=== PATIENT | female | born 1950 | race Caucasian/White ===

== ENCOUNTER 2019-04-19 12:22 | Outpatient (CLI) | payer MEDICARE, SELFPAY ==
--- NOTE | ~2019-04-19 | MMUS_ITS ---
EXAMINATION: MM screen LT diag RT w john paul, US breast RT complete HISTORY: Right palpable breast mass TECHNIQUE: ML, MLO and craniocaudal full field and spot compression 3-D tomosynthesis images of the r ight breast and MLO and cc 3-D Tomosynthesis images of the left breast were performed and synthetic 2 -D images were generated. CAD analysis was submitted and interpreted. High resolution complete right breast breast ultrasound was performed. COMPARISON: 07/09/2011 [facility], [place], [place]. BREAST PARENCHYMAL COMPOSITION: The breasts are heterogeneously dense, which may obscure small masses . FINDINGS: MAMMOGRAPHIC FINDINGS: There is architectural distortion and overlying retraction in the outer mid to upper right breast and up to 3.7 x 6.7 cm asymmetric mass density (or densities) in the upper mid and inner right breast. C omplete right breast ultrasound examination was performed. No reproducible mass or architectural distortion, malignant calcification, skin thickening or retract ion is evident on the left. ULTRASOUND: At 11:00-1:00 in the upper inner and upper outer right breast there is a huge bilobed solid mass roshan uring up to 3.6 x 6.5 cm or greater dimension, with some relatively hypoechoic/sonolucent central are as which may represent necrosis. There is internal vascularity on color flow imaging. There is roly ectural distortion, spiculation. At 1:00 3 cm from the nipple there is an irregular hypoechoic solid lesion measuring 12 x 14.5 x 6 mm dimension. There is an adjacent approximately 2.8 x 11.7 mm solid lesion with suggestion of a fatty hilus, possibly a lymph node. At 1:00 5 cm from the nipple there is a 10.5 x 13.9 x 9.5 mm hypoechoic solid mass. IMPRESSION: 1. Right breast masses highly suggestive of malignancy 2. Ultrasound-guided biopsy of right breast masses should be considered BI-RADS category 5, highly suggestive of malignancy. Appropriate action should be taken. Dr. Becerra telephoned the report on 04/20/2019 at 0830 hours to Nurse Graves's voicemail Reviewed, dictated and finalized at location A. CONSULTANT IMPRESSION: 1. Right breast masses highly suggestive of malignancy 2. Ultrasound-guided biopsy of right breast masses should be considered BI-RADS category 5, highly suggestive of malignancy. Appropriate action should be taken. Dr. Becerra telephoned the report on 04/20/2019 at 0830 hours to Nurse [facility]ly's [facility] IMPRESSION: 1. Right breast masses highly suggestive of malignancy 2. Ultrasound-guided biopsy of right breast masses should be considered BI-RADS category 5, highly suggestive of malignancy. Appropriate action should be taken. Dr. Becerra telephoned the report on 04/20/2019 at 0830 hours to Nurse [facility]
== END 2019-04-19 12:23 | disposition home or self-care (01) ==
PROVIDERS: PCP Family Medicine
DX: Z12.31 Encounter for screening mammogram for malignant neoplasm of breast (principal); N64.51 Induration of breast; R92.8 Other abnormal and inconclusive findings on diagnostic imaging of breast
CPT/HCPCS: 76641; 77063; 77065; 77067

== ENCOUNTER 2019-05-03 09:30 | Outpatient (CLI) | payer MEDICARE, SELFPAY ==
--- NOTE | ~2019-05-03 | MMUS_ITS ---
EXAMINATION: US GUIDED NEEDLE BIOPSY DATE: 05/03/2019 11:07 SOFTWARE PROGRAMMER INDICATION: Multiple right breast masses. TECHNIQUE AND FINDINGS: The risks and potential benefits of the procedure were discussed with the patient, and written inform ed consent was obtained. Timeout procedure was performed. After sterile preparation of the right tri st, 1% lidocaine was utilized for local anesthesia. Ultrasound-guided biopsy was performed at 2 locations, including a large lesion at 11-1:00 and a smal ler adjacent lesion at 1:00. A 14G spring-loaded biopsy gun needle was advanced to the edge each mass of interest from a lateral a pproach utilizing sonographic guidance. A total of three tissue core samples were obtained from each of the 2 lesions. An Inrad tissue marker clip was then placed at each of the biopsy sites. Hemostas is was achieved. A sterile bandage was applied. The patient tolerated procedure well and there was no evidence of immediate complication. The patien t was given verbal instructions prior to departing from the department. A two view mammogram was performed, documenting a biopsy marker within the medial aspect of the large bilobed mass at 11-1:00 and another biopsy marker within a smaller more posteriorly situated upper i nner quadrant left breast mass. The tissue samples were submitted to surgical pathology for histologic analysis. IMPRESSION: 1. Successful ultrasound guided biopsy of 2 right breast masses with biopsy marker placement. Please refer to pathology report for histologic analysis. Reviewed, dictated and finalized at Location A. Reviewed, dictated and finalized at location A. WARE PROGRAMMER IMPRESSION: 1. Successful ultrasound guided biopsy of 2 right breast masses with biopsy ma rker placement. Please refer to pathology report for histologic analysis. IMPRESSION: 1. Successful ultrasound guided biopsy of 2 right breast masses with biopsy ma rker placement. Please refer to pathology report for histologic analysis.
== END 2019-05-03 09:31 | disposition home or self-care (01) ==
LOC: ANHIMG 09:36
PROVIDERS: PCP Family Medicine; Visit Provider Nurse Practitioner Family
DX: R92.8 Other abnormal and inconclusive findings on diagnostic imaging of breast (principal); N63.10 Unspecified lump in the right breast, unspecified quadrant; C50.911 Malignant neoplasm of unspecified site of right female breast
CPT/HCPCS: 19083; 19084; 88305; 88342; A4648

== ENCOUNTER 2019-05-13 15:45 | Outpatient (CLI) | payer MEDICARE, SELFPAY ==
[2019-05-13 15:58] LABS: Basophils Absolute Auto 0.1 K/mm3 (0.0-0.1); Basophils Percent Auto 0.8 % (0.2-1.2); Eosinophils Absolute Auto 0.3 K/mm3 (0-0.3); Hematocrit 40.6 % (37.0-47.0); Hemoglobin 13.5 g/dL (12.0-15.0); Immature Granulocyte Absolute 0.02 K/mm3 (0.00-0.031); Immature Granulocyte Percent A 0.2 % (0-0.5); Lymphocytes Absolute Auto 1.97 K/mm3 (0.9-3.2); Lymphocytes Percent Auto 21.2 % (18.3-44.2); Mean Corpuscular HGB Conc 33.3 g/dl (32-36); Mean Corpuscular Hemoglobin 30.5 pg (26-34); Mean Corpuscular Volume 91.6 fl (80-100); Mean Platelet Volume 8.5 fl (7.4-10.4); Monocytes Absolute Auto 0.8 K/mm3 (0.1-0.6); Monocytes Percent Auto 8.2 % (2.6-8.5); Neutrophils Absolute Auto 6.2 K/mm3 (1.3-6.7); Neutrophils Percent Auto 66.6 % (45.5-73.1); Platelet Count Result 299 k/mm3 (150-375); Red Blood Count 4.43 M/mm3 (4.2-5.4); Red Cell Distribution Width 12.3 % (11.5-14.5); White Blood Count 9.3 K/mm3 (4.5-10.0)
[2019-05-13 16:49] LABS: Alanine Aminotransferase 26 U/L (4-35); Albumin Level 4.6 g/dL (3.5-5.1); Alkaline Phosphatase 94 U/L (38-126); Aspartate Amino Transferase 27 U/L (14-36); Bilirubin,Total 0.4 mg/dL (0.2-1.3); Blood Urea Nitrogen 18 mg/dL (7-17); Carbon Dioxide 26 mmol/L (22-30); Chloride 98 mmol/L (98-107); Estimated Glomerular Filt Rate > 60; Glucose 105 mg/dL (65-105); Potassium 4.5 mmol/L (3.4-5.0); Sodium 139 mmol/L (137-145)
== END 2019-05-13 15:46 | disposition home or self-care (01) ==
LOC: ANHLAB 15:46
PROVIDERS: PCP Family Medicine; Visit Provider Internal Medicine Hematology & Oncology
DX: C50.411 Malignant neoplasm of upper-outer quadrant of right female breast (principal); Z17.0 Estrogen receptor positive status [ER+]
CPT/HCPCS: 36415; 80053; 85025

== ENCOUNTER 2019-05-19 08:52 | Outpatient (CLI) | payer MEDICARE, SELFPAY ==
[2019-05-19 09:36] LABS: INR 0.9; Prothrombin Time 11.9 Seconds (11.1-14.7)
[2019-05-19 09:37] LABS: Partial Thromboplastin Time 26.6 SECONDS (22.3-36.8)
== END 2019-05-19 08:53 | disposition home or self-care (01) ==
LOC: ANHSURGERY 08:55
PROVIDERS: PCP Family Medicine; Visit Provider Surgery
DX: Z01.818 Encounter for other preprocedural examination (principal); C50.919 Malignant neoplasm of unspecified site of unspecified female breast
CPT/HCPCS: 36415; 85610; 85730

== ENCOUNTER 2019-05-24 00:22 | Day surgery (SDC) | payer MEDICARE, SELFPAY ==
[2019-05-18 14:55] VITALS: BMI 30.8
--- NOTE | ~2019-05-24 | XR_ITS ---
XR chest port-a-cath/central, XR fl guide central line place 05/24/2019 14:27 (accession [id number]), 05/24/2019 14:14 (accession [id number]) Indication: Portacatheter insertion Procedure: AP portable chest and 2 fluoroscopic images of the chest. 50 seconds of fluoroscopy. Comparison: No prior studies for comparison. Findings: Left IJ portacatheter tip in the SVC. Heart size normal. Small nodule right mid thorax roshan ures 8 mm. No focal pneumonia, edema, pleural effusion or pneumothorax. Impression: 1: 8 mm nodule right mid thorax. Follow-up CT chest recommended for further assessment. 2: Port catheter tip in the SVC. Reviewed, dictated and finalized at location B. RUNNER Impression: 1: 8 mm nodule right mid thorax. Follow-up CT chest recommended for further ass essment. 2: Port catheter tip in the SVC. Impression: 1: 8 mm nodule right mid thorax. Follow-up CT chest recommended for further ass essment. 2: Port catheter tip in the SVC.
--- NOTE | 2019-05-24 09:27 | WPDANESEPPF ---
Anes - Initial Pre Proc Eval Procedure: Operation Date: 05/24/19 14:00 Proposed Procedures p Insertion Seth Cath - Hamilton Lopez DO Date/Time: 05/24/19 09:27 Surgeon: Hamilton Lopez DO Pre Op Diagnosis: Right Breast Ca Patient Data Age: 68 Gender: F Height: 1.68 m Weight: 86.64 kg Allergies Allergy/AdvReac Type Severity Reaction Status Date / Time No Known Allergies Allergy Verified 05/18/19 14:54 Home Medications Medication Instructions Recorded Confirmed Type anastrozole 1 mg PO DAILY 05/18/19 05/18/19 History diphenhydramine-acetaminophen 1 tablet PO HS PRN 05/18/19 05/18/19 History [Tylenol PM Extra Strength] Patient hx anesthesia problems: none Family hx anesthesia problems: none [facility] Past Medical History Medical History (Updated 05/24/19 @ 09:28 by Casey Baker MD) Breast CA Obesity Social History Social History Gender identity (if verbalized by the patient): Female Anes - Eval Final PreProcedure Day of Procedure 05/24/19 09:27 Patient weight: obese Heart: regular rate and rhythm Lungs: clear to auscultation and normal air movement Airway: Mallampati scale class II Neurological: alert and oriented Last oral intake: >/= 8 hours ASA classification: III Emergent: no Anesthetic plan: proceed Anesthesia type and monitoring: general GIVS Informed Consent: The patient's anesthetic plan and its attendant risks and benefits were discussed with the patient/family/POA. Questions were solicited and answers provided to the satisfaction of the patient/family/POA.
[2019-05-24] MEDS: LACTATED RINGERS 1,000 ML 30 ML IV CONT (11:55)
[2019-05-24] MEDS: IBUPROFEN IV 800 MG/200 ML 800 MG/200 ML BAG 400 MG IVPB (12:13)
[2019-05-24 12:21] VITALS: BP 149/69; PULSE 91; RESP 18; TEMP 36.9; O2SAT 97
--- NOTE | 2019-05-24 13:26 | PM.IMHP ---
H&P: HPI History of Present Illness Chief complaint: Right Breast Ca Narrative: Cira Massey is a 68 year old female who presents with a recent finding of right breast cancer. She has a mass in her breast that was growing but she was caring for her who recently . She has had a biopsy which showed cancer. She is scheduled to begin chemo on Thursday. Review of Systems Review of Systems: All systems reviewed & are unremarkable except as noted in HPI and below PMFSH Past Medical History Medical History Breast CA Obesity Social History Social History Gender identity (if verbalized by the patient): Female Meds Home Medications and Allergies Home Medications Medication Instructions Recorded Confirmed Type anastrozole 1 mg PO DAILY 05/18/19 05/24/19 History diphenhydramine-acetaminophen 1 tablet PO HS PRN 05/18/19 05/24/19 History [Tylenol PM Extra Strength] Allergies Allergy/AdvReac Type Severity Reaction Status Date / Time No Known Allergies Allergy Verified 05/24/19 11:36 Vital Signs Vital Signs - 24 hr 05/24/19 12:21 Temperature 36.9 C Pulse Rate 91 Respiratory Rate 18 Blood Pressure 149/69 H Pulse Oximetry 97 Exam Const: General: alert; No acute distress Orientation/consciousness: patient oriented x3 Limitations: no limitations HENMT: Head: normocephalic and atraumatic Ears: hearing grossly normal bilaterally General nose exam: Normal external nose present and Normal nares present Mouth: Yes Normal oral and palatal mucosa present and Yes moist mucous membranes Eyes: General: appearance normal, both eyes and all related structures Conjunctivae: conjunctivae normal Sclera: sclerae normal Pupils: Equal, round and reactive pupils present EOM: EOMs intact bilaterally Neck: Neck: normal visual inspection, full ROM, no lymphadenopathy, supple and no JVD Lymphatic: no lymphadenopathy noted Chest: Chest palpation & inspection: normal inspection of the chest Resp: Effort & Inspection: normal respiratory effort and able to speak in complete sentences Auscultation: clear to auscultation bilaterally Percussion: percussion normal Cardio: Jugular venous distension: no JVD Rate: regular rate Rhythm: regular rhythm Heart sounds: S1 normal heart sound present and S2 normal heart sound present Peripheral pulses: Peripheral pulses 2+ throughout GI: Inspection: normal to inspection GI Palp: No abdominal tenderness, Yes Soft to palpation, No Guarding due to palpation present (GI), No Hernia present and No Rebound tenderness present Percussion: Yes normal to percussion Auscultation: normal bowel sounds : General: Yes no CVA tenderness Back/Spine/Pelvis: Back: no CVA tenderness Skin: General skin exam: normal color and dry skin Neuro: General: patient oriented x3, gait normal, moves all extremities, no focal motor deficits and CN's II-XI intact bilaterally Cranial nerves: Yes Equal, round and reactive pupils present Speech: normal speech Extrem: General: normal to inspection and capillary refill normal Assessment and Plan Assessment and plan (1) Breast CA: Code(s): C50.919 - Malignant neoplasm of unspecified site of unspecified female breast Status: Acute Assessment and Plan: I have recommended Port-a-Cath placement. I have discussed the procedure, risks, benefits, and alternatives with the patient. All questions answered.
[2019-05-24] MEDS: ceFAZolin 2 GM/D5W 50 ML 2 GM/50 ML BAG IVPB (13:33)
[2019-05-24] MEDS: HEPARIN SODIUM, PORCINE 10,000 UNITS/10 ML VIAL 2000 UNITS IV PUSH (13:44)
[2019-05-24] MEDS: LIDO 1%/EPINEPHRINE 1:100,000 20 ML VIAL 10 ML INFILTRATE (13:47)
[2019-05-24] MEDS: HEPARIN SODIUM 5,000 UNITS/ML VIAL 5000 UNITS IRRIGATION (13:54)
[2019-05-24 14:17] VITALS: BP 110/73; PULSE 98; O2SAT 96
--- NOTE | 2019-05-24 14:24 | PM.PROC ---
Procedure Note - Detailed Date of procedure: 05/24/19 Pre-op diagnosis: Right Breast Ca Post-op diagnosis: same Procedure performed: Left internal jugular Port-A-Cath placement using ultrasound and fluoroscopic guidance Description of procedure: Procedure as well as risks, benefits, and alternatives were discussed with patient. Written consent was obtained and placed in chart prior to procedure. Patient was brought back to surgical suite. Was placed supine on operating table. Time-out was done confirm patient procedure. IV sedation was then administered by the Anesthesia Department. The chest and neck area was prepped and draped in sterile fashion using chlorhexidine prep. Patient was placed in Trendelenburg position. SonoSite ultrasound was used to identify the left internal jugular vein. It was visualized as a compressible vessel just lateral to the carotid artery. 1% lidocaine with epinephrine was infiltrated directly over the vessel under ultrasound guidance. An 18 gauge introducer needle was then advanced under ultrasound guidance directly into the left internal jugular vein. Dark nonpulsatile blood was aspirated. A 0.035 in guidewire was then advanced through the needle under fluoroscopic guidance. The guidewire was visualized advancing all the way down into the superior vena cava. 1% lidocaine with epinephrine was then infiltrated on the left anterior chest and along the tract up to the guidewire insertion site. A 3 cm incision was made with a 15 blade scalpel, and electrocautery was then used for dissection down through the subcutaneous tissue to the pectoral fascia. A pocket was created just inferior to the incision using blunt dissection. A small tad incision was then also made at the insertion site at the neck. The tunneler was then advanced from the chest incision up to the neck incision and the catheter tubing was brought up through this tract. The dilator and sheath were then advanced over the guidewire under fluoroscopic visualization. The dilator and guidewire were then removed leaving the sheath in place. The catheter tubing was then advanced through the sheath under fluoroscopic guidance. The sheath was unsnapped and carefully peeled away. The catheter tubing was released underneath the neck incision. Fluoroscopy was used to confirm proper placement of the catheter tubing and no kinks along its path. The catheter was then cut to proper length and secured to the port. The port was then accessed with a Garcia needle and aspirated and flushed with heparinized saline. The port function with ease. The port was then hep-locked with Hep-Lock solution. The port was then placed within the pocket that was created, and was secured to the fascia using 3 0 Prolene simple interrupted sutures. The patient was flattened out in bed. Guillermina's fascia was reapproximated using 3 0 Vicryl simple interrupted sutures. The skin of the incisions was then approximated using 4-0 Monocryl subcuticular suture. Exofin glue was then applied on top. The patient was then awakened from anesthesia and transferred to recovery. Implants: Smart Port CT port Anesthesia: MAC and local (1% lidocaine with epinephrine) Surgeon: Hamilton Lopez DO Estimated blood loss (mL): 5 Complications: No immediate complications Condition: stable Disposition: same day Findings: This is a 68 year woman presented with a recent finding of right breast cancer. She noticed a mass in her right breast that had gotten larger over the past 3-6 months. Biopsy confirmed breast cancer. She has been referred to Oncology for chemotherapy, and she has also been referred to a breast specialist in [place] for possible surgical resection. She is in need of port placement to initiate chemotherapy. Left internal jugular Port-A-Cath was placed using ultrasound and fluoroscopic guidance. Ultrasound was used to identify the left internal jugular vein as a compressible vessel just lateral to t
[2019-05-24 14:45] VITALS: BP 146/58; PULSE 86
[2019-05-24 15:15] VITALS: BP 106/83; PULSE 94
== END 2019-05-24 15:27 | disposition home or self-care (01) ==
PROVIDERS: PCP Family Medicine; Visit Provider Surgery
PROC: (CPT 36561; principal; 2019-05-24 14:00)
DX: C50.919 Malignant neoplasm of unspecified site of unspecified female breast (principal); E66.9 Obesity, unspecified; Z68.30 Body mass index [BMI] 30.0-30.9, adult
CPT/HCPCS: 36561; 77001; C1788; J0690; J1644; J1741; J2704; J3010; J7030; J7120

== ENCOUNTER 2019-05-24 07:23 | Outpatient (CLI) | payer MEDICARE, SELFPAY ==
--- NOTE | ~2019-05-24 | MR_ITS ---
MR breast BI wo/w con 05/26/2019 09:05 QUEEN'S COUNSEL INDICATION: Known right breast cancer TECHNIQUE: MRI of the breasts perform using standard protocol pre-and post IV contrast with the follo wing sequences: Axial T2 STIR, axial T1, axial vibrant T1 with fat suppression precontrast and multip hasic postcontrast. COMPARISON: Comparison to multiple prior studies sequentially, with oldest reviewed study dated 04/19. FINDINGS: On precontrast images there is a large complex irregular shaped mass involving multiple thanh drants. The mass extends just posterior to the nipple with heterogeneous rapid washout enhancement. T here are areas of dark internal septations, likely areas of necrosis. This mass measures 9.5 x 6.8 x 5.8 cm. There is mild background parenchymal enhancement. In the upper outer quadrant of the right br east at 11:00, posteriorly there is a mass measuring 11 x 10 x 8 mm with rapid washout enhancement, l ikely a lymph node with effacement of the internal fat, suspicious for metastases. There is an additi onal mass in the right axillary tail posteriorly measuring 8 x 7 x 7 mm with similar imaging appearan ce, suspicious for pathologic lymph node. LEFT BREAST: No signal abnormalities on precontrast sequences. There is mild background parenchymal enhancement. No enhancing lesions following contrast administration. No areas of enhancement meeti ng threshold criteria on CAD analysis. No evidence of signal abnormalities in the axillary or inter nal mammary node distributions.] IMPRESSION: 1: Right breast: Large lobulated irregular shaped mass involving multiple quadrants with rapid washo ut internal enhancement and likely areas of necrosis.. This corresponds to the known malignancy and m easures 9.5 x 6.8 x 5.8 cm. There are probable pathologic lymph nodes in the upper outer quadrant of the right breast and axillary tail, suspicious for metastases. BI-RADS Category 6, known malignancy. 2: Left breast: Negative. No evidence of malignancy. BI-RADS category 1. Recommend annual mammogr aphy follow-up. Follow-up MRI may be useful for supplementing mammographic evaluation as clinically indicated. Reviewed, dictated and finalized at location A. N'S COUNSEL IMPRESSION: 1: Right breast: Large lobulated irregular shaped mass involving multiple quad rants with rapid washout internal enhancement and likely areas of necrosis.. Th is corresponds to the known malignancy and measures 9.5 x 6.8 x 5.8 cm. There a re probable pathologic lymph nodes in the upper outer quadrant of the right marlo ast and axillary tail, suspicious for metastases. BI-RADS Category 6, known mal ignancy. 2: Left breast: Negative. No evidence of malignancy. BI-RADS category 1. Re commend annual mammography follow-up. Follow-up MRI may be useful for supplementing mammographic evaluation as clinic ally indicated.
[2019-05-24 08:13] LABS: Estimated Glomerular Filt Rate > 60
== END 2019-05-24 07:24 | disposition home or self-care (01) ==
PROVIDERS: PCP Family Medicine; Visit Provider Internal Medicine Hematology & Oncology
DX: C50.411 Malignant neoplasm of upper-outer quadrant of right female breast (principal); Z17.0 Estrogen receptor positive status [ER+]
CPT/HCPCS: 36415; 77049; A9577; C8908

== ENCOUNTER 2019-05-26 06:37 | Outpatient (CLI) | payer MEDICARE, SELFPAY ==
--- NOTE | 2019-05-26 | ECHO_ITS ---
Patient Info Name: Cira Massey Age: 68 years : 1950 Gender: Female Ht: 67 in Wt: 191 lbs BSA: 2.05 m2 HR: 82 bpm BP: 135 / 83 mmHg Exam Date: 05/26/2019 7:29 AM Exam Location: [facility] Patient Status: Outpatient Admit Date: 05/26/2019 Staff Ordering Physician: Yonatan Gomez MD Teasel Setter: Yazmin Richardson RDCS Attending Provider: Yonatan Gomez MD Referring Physician: Jason CALDWELL; Exam Type: CA echo doppler color flow Study Info Indications C50.411 - Malignant neoplasm of upper-outer quadrant of right female breast Summary 1. Left ventricular systolic function is normal, estimated at 60-65%. 2. There is mildly increased left ventricular wall thickness. 3. The left ventricular diastolic function is grade I diastolic dysfunction. 4. There is mild aortic valve sclerosis. 5. There is trace aortic valve regurgitation. 6. There is mild tricuspid valve regurgitation. 7. No pulmonary hypertension, estimated pulmonary arterial systolic pressure is 33 mmHg. 8. There is mild pulmonic regurgitation. Left Ventricle Left ventricular chamber dimension is normal. Left ventricular systolic function is normal, estimated at 60-65%. There is mildly increased left ventricular wall thickness. Left ventricular septal wall motion is normal. The left ventricular diastolic function is grade I diastolic dysfunction. Right Ventricle Right ventricular chamber dimension is normal. Right ventricular systolic function is normal. Left Atria Left atrial chamber dimension is normal. Right Atria Right atrial chamber dimension is normal. Atrial Septum Intact interatrial septum visualized by color flow imaging. Aortic Valve The aortic valve is trileaflet. There is mild aortic valve sclerosis. There is no aortic valve stenosis. There is trace aortic valve regurgitation. Pulmonic Valve The pulmonic valve is normal. There is no pulmonic valve stenosis. There is mild pulmonic regurgitation. Mitral Valve The mitral valve has normal leaflets. There is no mitral valve stenosis. There is no mitral valve regurgitation. Tricuspid Valve The tricuspid valve leaflets are normal. There is no significant tricuspid valve stenosis. There is mild tricuspid valve regurgitation. No pulmonary hypertension, estimated pulmonary arterial systolic pressure is 33 mmHg. Pericardium/Pleural The pericardium appears normal. There is no pericardial effusion. Inferior Vena Cava Normal inferior vena cava with >50% collapse upon inspiration consistent with Empty right atrial pressure, 5 mmHg. Aorta The aortic root size at the sinus of Valsalva is normal. The prox ascending aorta size is normal. Left Ventricular Outflow Tract Name Value Normal LVOT 2D LVOT Diameter 1.9 cm LVOT Doppler LVOT Peak Gradient 4 mmHg LVOT Mean Gradient 2 mmHg LVOT VTI 19 cm LVOT VTI/AV VTI Ratio 1.0 LVOT Stroke Volume 53 ml LVOT CO 4.5 l/min
--- NOTE | ~2019-05-26 | CT_ITS ---
EXAMINATION: CT chest abdomen pelvis w con DATE: 05/26/2019 14:34 INDICATION: Malignant neoplasm of overlapping sites of right breast. TECHNIQUE: Computed tomography (CT) of the chest, abdomen, and pelvis was performed with 100 mL Omnip aque 350 intravenous contrast. Automated exposure control and iterative reconstruction technique were employed. The dose-length product was 1110.80 mGy-cm. COMPARISON: None FINDINGS: CHEST CT: The lungs demonstrate mild atelectasis. A calcified right lung nodule and calcified mediastinal lymph nodes are consistent with old granulomatous disease. There is a 3 mm nodule in right middle lobe, li alberto benign. No pleural effusion. The heart size is normal. No pericardial effusion. There is a left internal jugular port with tip at superior cavoatrial junction. There is a 6.4 x 3.6 cm mass in right breast. There are bridging endplate osteophytes at multiple levels in the spine, consistent with dif fuse idiopathic skeletal hyperostosis (DISH). ABDOMEN/PELVIS CT: The liver, gallbladder, spleen, pancreas, and adrenal glands are normal. There are cysts in the kidne ys measuring up to 1.6 cm on the right. There is diverticulosis of the colon without evidence of dive rticulitis. There are no dilated loops of bowel. The appendix is normal. There are no pathologically enlarged lymph nodes. There is no free intraperitoneal fluid. There is a 2.0 cm sclerotic lesion in l eft ilium. There is a 5 mm sclerotic lesion in left ilium. There is a 4 mm sclerotic lesion in the sa zeeshan. There is a 5 mm benign bone island in left ilium. There is severe lumbar spondylosis. IMPRESSION: 1. Right breast mass, consistent with primary malignancy. 2. Sclerotic lesions of bone, which may be benign bone islands or metastatic disease. Consider bone s can. Reviewed, dictated and finalized at location A. ITAL PHARMACY DIRECTOR IMPRESSION: 1. Right breast mass, consistent with primary malignancy. 2. Sclerotic lesions of bone, which may be benign bone islands or metastatic di sease. Consider bone scan.
== END 2019-05-26 06:38 | disposition home or self-care (01) ==
PROVIDERS: PCP Family Medicine; Visit Provider Internal Medicine Hematology & Oncology
DX: C50.411 Malignant neoplasm of upper-outer quadrant of right female breast (principal); Z17.0 Estrogen receptor positive status [ER+]; I51.7 Cardiomegaly; I08.2 Rheumatic disorders of both aortic and tricuspid valves; I37.1 Nonrheumatic pulmonary valve insufficiency; M89.9 Disorder of bone, unspecified
CPT/HCPCS: 71260; 74177; 93306; Q9967

== ENCOUNTER 2019-10-05 13:33 | Outpatient (CLI) | payer MEDICARE, SELFPAY ==
[2019-10-05 13:49] LABS: Basophils Absolute Auto 0.1 K/mm3 (0.0-0.1); Basophils Percent Auto 0.5 % (0.2-1.2); Eosinophils Absolute Auto 0.2 K/mm3 (0-0.3); Eosinophils Percent Auto 1.6 % (0-4.4); Hematocrit 30.9 % (37.0-47.0); Hemoglobin 9.7 g/dL (12.0-15.0); Immature Granulocyte Absolute 0.08 K/mm3 (0.00-0.031); Immature Granulocyte Percent A 0.6 % (0-0.5); Lymphocytes Absolute Auto 0.79 K/mm3 (0.9-3.2); Lymphocytes Percent Auto 6.2 % (18.3-44.2); Mean Corpuscular HGB Conc 31.4 g/dl (32-36); Mean Corpuscular Hemoglobin 30.4 pg (26-34); Mean Corpuscular Volume 96.9 fl (80-100); Mean Platelet Volume 8.2 fl (7.4-10.4); Monocytes Absolute Auto 1.1 K/mm3 (0.1-0.6); Monocytes Percent Auto 8.3 % (2.6-8.5); Neutrophils Absolute Auto 10.6 K/mm3 (1.3-6.7); Neutrophils Percent Auto 82.8 % (45.5-73.1); Platelet Count Result 363 k/mm3 (150-375); Red Blood Count 3.19 M/mm3 (4.2-5.4); Red Cell Distribution Width 15.4 % (11.5-14.5); White Blood Count 12.8 K/mm3 (4.5-10.0)
[2019-10-05 15:17] LABS: Alanine Aminotransferase 42 U/L (4-35); Alkaline Phosphatase 118 U/L (38-126); Aspartate Amino Transferase 40 U/L (14-36); Bilirubin,Total 0.4 mg/dL (0.2-1.3); Blood Urea Nitrogen 10 mg/dL (7-17); Calcium 9.6 mg/dL (8.4-10.2); Carbon Dioxide 25 mmol/L (22-30); Chloride 98 mmol/L (98-107); Estimated Glomerular Filt Rate > 60; Glucose 102 mg/dL (65-105); Potassium 4.3 mmol/L (3.4-5.0); Sodium 135 mmol/L (137-145)
== END 2019-10-05 13:34 | disposition home or self-care (01) ==
LOC: ANHLAB 13:35
PROVIDERS: PCP Family Medicine; Visit Provider Internal Medicine Hematology & Oncology
DX: C50.811 Malignant neoplasm of overlapping sites of right female breast (principal); Z17.0 Estrogen receptor positive status [ER+]
CPT/HCPCS: 36415; 80053; 85025

== ENCOUNTER 2020-05-21 08:21 | Outpatient (CLI) | payer MEDICARE, SELFPAY ==
--- NOTE | ~2020-05-21 | MM_ITS ---
EXAMINATION: MM screening alejandra LT w john paul HISTORY: Screening TECHNIQUE: Craniocaudal and mediolateral oblique 3-D tomosynthesis images were obtained and synthetic 2-D images were generated. CAD analysis was submitted and interpreted. COMPARISON: Comparison to multiple prior studies sequentially, with oldest reviewed study dated 07/08. BREAST PARENCHYMAL COMPOSITION: The breasts are heterogenously dense, which may obscure small masses. FINDINGS: There are benign-appearing left breast calcifications. There is no evidence of suspicious m ass, calcification, or architectural distortion to suggest malignancy in the left breast. There has b een no suspicious interval change. IMPRESSION: 1. No mammographic evidence of malignancy. 2. Recommend routine screening mammography in one year. BI-RADS CATEGORY 1 - NEGATIVE Reviewed, dictated and finalized at location A. COATER
== END 2020-05-21 08:22 | disposition home or self-care (01) ==
PROVIDERS: PCP Family Medicine; Visit Provider Internal Medicine Hematology & Oncology
DX: Z12.31 Encounter for screening mammogram for malignant neoplasm of breast (principal)
CPT/HCPCS: 77063; 77067

== ENCOUNTER → 2020-07-13 00:47 | Outpatient (CLI) | payer MEDICARE, SELFPAY ==
[2020-07-13 21:02] LABS: SARS-CoV-2 RNA PCR Negative
== END ==
PROVIDERS: PCP Family Medicine; Visit Provider Surgery
DX: Z01.812 Encounter for preprocedural laboratory examination (principal); Z20.822 Contact with and (suspected) exposure to COVID-19
CPT/HCPCS: C9803; U0003; U0005

== ENCOUNTER 2020-07-16 03:05 | Day surgery (SDC) | payer MEDICARE, SELFPAY ==
[2020-07-13 10:16] VITALS: BMI 28.1
[2020-07-16] VITALS (7 sets, daily range): BP systolic 136–152; BP diastolic 63–79; PULSE 93–119; RESP 16–18; TEMP 36.3; O2SAT 95–99
--- NOTE | 2020-07-16 11:02 | PM.HPGS ---
History of Present Illness History of Present Illness Consent: Risks, benefits, and alternatives of removal of a Port-A-Cath have been discussed and questions answered. Patient agrees to proceed with procedure. Chief complaint: malignant neoplasm of overlapping sites rt breast Narrative: Cira Massey is a 69 year old female who has had breast cancer. She had T3N1 M1 MX stage IIB disease and is status post right-sided mastectomy and sentinel lymph node biopsy in September of 2019. 1 of 3 lymph nodes had micro metastasis. Patient's Oncotype DX showed a recurrence score of 27. Since completing radiation and chemotherapy the patient has been on Arimidex. Patient now presents with no evidence of further disease and has been approved by Dr. Ella shore to have her Port-A-Cath removed. She has not has noticed any new masses along the chest wall or any lymphadenopathy. Weight and appetite have been stable. Review of Systems Constitutional: Constitutional: Reports no additional constitutional complaints, Reports fatigue and Denies malaise Eyes: Eyes: Denies change in vision and Denies loss of vision ENT: Reports Normal hearing present, Denies change in voice, Denies dizziness, Denies hoarseness and Denies sore throat Cardiovascular: Cardiovascular: Denies chest pain, Denies leg edema and Denies dyspnea Respiratory: Respiratory: Denies cough, Denies dyspnea and Denies wheezing Gastrointestinal: Gastrointestinal: Denies hematochezia, Denies change in bowel habits and Denies heartburn Genitourinary: Genitourinary: Denies urinary frequency and Denies urinary incontinence Neurologic: Reports Normal hearing present, Denies confusion, Denies dizziness, Denies loss of vision, Denies memory loss and Denies seizure-like activity Psychiatric: Psychiatric: Denies confusion, Denies depression and Denies memory loss Endocrine: Endocrine: Denies cold intolerance and Reports fatigue Hematologic/Lymphatic: Hematologic/Lymphatic: Denies easy bleeding and Denies easy bruising Allergic/Immunologic: Allergic/Immunologic: Denies wheezing PMFSH Past Medical History Medical History Breast CA Obesity Family History Family History Other No family history of cancer Social History Social History Smoking status: Never smoker Alcohol intake: current Drinks per week: 5 Substance use: never Substance use type: does not use Living arrangements: alone Gender identity (if verbalized by the patient): Female Spiritual care concerns: No Meds Home Medications and Allergies Home Medications Medication Instructions Recorded Confirmed Type ferrous sulfate 324 mg PO DAILY 07/11/19 07/16/20 History loratadine [Claritin] 10 mg PO DAILY 10/26/19 07/16/20 History dwnnczjffcpf-aoq-vath-FA-vit K 1 tablet PO DAILY 10/26/19 07/16/20 History [Adults Multivitamin] anastrozole 1 mg PO DAILY 01/13/20 07/16/20 History Allergies Allergy/AdvReac Type Severity Reaction Status Date / Time No Known Allergies Allergy Verified 07/16/20 10:29 Vital Signs Vital Signs - 24 hr 07/16/20 10:45 Temperature 36.3 C L Pulse Rate 119 H Respiratory Rate 18 Blood Pressure 146/78 H Pulse Oximetry 99 Exam Const: General: cooperative, healthy appearing, no acute distress, well developed and alert; No confusion Nutritional Appearance: well nourished Orientation/consciousness: patient oriented x3 and No confusion Limitations: no limitations HENMT: Head: normal to inspection, normocephalic and atraumatic Ears: hearing grossly normal bilaterally General nose exam: Normal external nose present Face and sinus: no edema Mouth: Yes Normal oral and palatal mucosa present and Yes lip normal Throat: posterior oropharynx normal Eyes: General: appearance normal, both eyes and all related
--- NOTE | 2020-07-16 11:23 | WPDHPUPDATE1 ---
History and Physical Update Update Date/Time: 07/16/20 11:23 History and Physical has been reviewed, including an updated exam of the patient. There are NO changes in the patient's condition. Risks, benefits, and alternatives have been discussed and questions answered. Patient agrees to proceed with procedure.
[2020-07-16] MEDS: LIDO 2%/EPINEPHRINE 1:100,000 20 ML VIAL INFILTRATE (11:49)
--- NOTE | 2020-07-16 12:20 | PM.PROC ---
Procedure Note - Detailed Date of procedure: 07/16/20 Pre-op diagnosis: malignant neoplasm of overlapping sites rt breast Indwelling Port-A-Cath Post-op diagnosis: same Procedure performed: Removal of Port-A-Cath Description of procedure: Prior to the procedure the patient was seen in the holding area and the area of proposed surgery was marked. All questions were answered and the patient wished to proceed with removal of the Port-A-Cath. The patient was brought to the operating room and placed supine. The entire left neck, chest, and shoulder were prepped with chlorhexidine. The area was draped off. Time-out was performed confirming patient and site of surgery. Following this a 15 blade knife was used to make incision directly on the scar from the previous port placement. This was done after infiltrating local anesthetic into the area of and inferior to the scar and into the area of the pocket containing the port to some degree using 2% xylocaine with epinephrine. Following this we carefully dissected down to the junction of the port and catheter. Bovie cautery with needle-tip was used to carefully incise the capsule around the port and free up the scar tissue around the junction of the port and catheter. Two Prolene sutures that were holding the port to the underlying fascia were carefully excised with a 15 blade knife and mosquito hemostats. Following this the port was brought up and out of the pocket. Then watching the patient's respirations I carefully removed the catheter in one smooth pull while applying pressure in the lower right neck area at the catheter exit site as the patient was breathing out. Pressure was held for 1 minute. I used Bovie cautery on some the subcutaneous tissues as we waited for good clotting. Again hemostasis was checked in the wound using Bovie cautery for superficial hemostasis in the subcutaneous tissues. Following this closure was obtained with 2 layers. I used buried subcutaneous sutures of 3-0 Vicryl in the subcutaneous layer followed by a running subcuticular closure of 4-0 Monocryl on the skin. Patient tolerated the procedure well. Estimated blood loss was 3 cc Sponge, needle, and instrument counts were correct at the end the procedure and patient was taken to the outpatient recovery area in good condition. Anesthesia: local ( 2% xylocaine with epinephrine) Surgeon: Xavi Rodriguez MD Intensive Care Unit Registered Nurse: none Estimated blood loss (mL): 3 Drains: No Packing: No Pathology: none sent Complications: No immediate complications Condition: stable Disposition: other ( outpatient recovery area) Findings: unremarkable port and catheter that were intact.
== END 2020-07-16 12:33 | disposition home or self-care (01) ==
PROVIDERS: PCP Family Medicine; Visit Provider Surgery
PROC: (CPT 36589; principal; 2020-07-16 11:30)
DX: Z45.2 Encounter for adjustment and management of vascular access device (principal); Z85.3 Personal history of malignant neoplasm of breast; Z85.89 Personal history of malignant neoplasm of other organs and systems; Z92.21 Personal history of antineoplastic chemotherapy; Z92.3 Personal history of irradiation; E66.9 Obesity, unspecified; Z68.28 Body mass index [BMI] 28.0-28.9, adult; Z79.811 Long term (current) use of aromatase inhibitors
CPT/HCPCS: 36590; C9803; U0003; U0005

== ENCOUNTER 2020-11-22 07:56 | Outpatient (CLI) | payer MEDICARE, SELFPAY ==
--- NOTE | ~2020-11-22 | DEXA_ITS ---
Bone Density Report Name: Cira Massey Age: 70 Sex: Female Ethnicity: White Date of : 1950 Indication: postmenopausal; cancer; hysterectomy; Referring Provider: Rai, Markie Yancey Study: Bone densitometry was performed. Exam Date: November 22, 2020 Accession number: [id number] Bone Density: Region BMD T-score Z-score Classification AP Spine (L1-L4) 1.336 2.6 4.6 Normal Femoral Neck (Left) 0.948 0.9 2.6 Normal Total Hip (Left) 0.931 -0.1 1.3 Normal Total Hip Bilateral Avg 0.920 -0.2 1.2 Normal Femoral Neck (Right) 0.817 -0.3 1.4 Normal Total Hip (Right) 0.908 -0.3 1.1 Normal World Health Organization criteria for BMD impression classify patients as: Normal (T-score at or above -1.0), Osteopenia (T-score between -1.0 and -2.5), or Osteoporosis (T-score at or below -2.5). 10-year Fracture Risk: FRAX not reported because: All T-scores for Spine Total, Hip Total, Femoral Neck at or above -1.0 Clinical Information Provided by Patient: Has used the following medications: Calcium Has the following medical conditions: Cancer, Hysterectomy Patient maximum height was 67 Menopause Age: 52 No regular weight bearing exercise Drinks caffeinated beverages Onset of menses at age 15 Number of children 0 Impression: The patient has normal bone mass. Discussion: BONE DENSITY IS ABOVE THE MINIMUM DESIRABLE LEVEL AT ALL SKELETAL SITES TESTED. This patient?s bone mineral density is above the minimum desirable level (T-score -1.0 or better) at all sites measured. The patient should follow a healthful lifestyle (good nutrition with adequate calcium and vitamin D, and appropriate weight-bearing exercise). Follow-Up: Consider repeating this study in 5 years or sooner if there is some new clinical indication. Reported by: SHAE on 11/22/2020 8:35:00 AM. Reviewed, dictated and finalized at location APratima MCKINLEY
== END 2020-11-22 07:57 | disposition home or self-care (01) ==
PROVIDERS: PCP Family Medicine; Visit Provider Family Medicine
DX: Z78.0 Asymptomatic menopausal state (principal)
CPT/HCPCS: 77080

== ENCOUNTER 2021-06-03 08:32 | Outpatient (CLI) | payer MEDICARE, SELFPAY ==
--- NOTE | ~2021-06-03 | MM_ITS ---
EXAMINATION: MM screening alejandra LT w john paul HISTORY: Screening left mammogram, history of right mastectomy TECHNIQUE: Craniocaudal and mediolateral oblique 3-D tomosynthesis images were obtained and synthetic 2-D images were generated. CAD analysis was submitted and interpreted. COMPARISON: 05/21/2020 BREAST PARENCHYMAL COMPOSITION: The breasts are heterogeneously dense, which may obscure small masses . FINDINGS: There is no evidence of suspicious mass, calcification, or architectural distortion to sugg est malignancy. There has been no suspicious interval change. IMPRESSION: 1. No mammographic evidence of malignancy. 2. Recommend routine screening mammography in one year. BI-RADS Category 1: Negative Reviewed, dictated and finalized at location A.
== END 2021-06-03 08:33 | disposition home or self-care (01) ==
LOC: ANHIMG 08:33
PROVIDERS: PCP Family Medicine; Visit Provider Internal Medicine Hematology & Oncology
DX: Z12.31 Encounter for screening mammogram for malignant neoplasm of breast (principal)
CPT/HCPCS: 77063; 77067

== ENCOUNTER 2021-11-04 08:45 | Outpatient (CLI) | payer MEDICARE, SELFPAY ==
[2021-11-04 09:04] LABS: Basophils Absolute Auto 0.1 K/mm3 (0.0-0.1); Basophils Percent Auto 0.8 % (0.2-1.2); Eosinophils Absolute Auto 0.3 K/mm3 (0-0.3); Eosinophils Percent Auto 4.8 % (0-4.4); Hematocrit 40.7 % (37.0-47.0); Hemoglobin 13.8 g/dL (12.0-15.0); Immature Granulocyte Absolute 0.03 K/mm3 (0.00-0.031); Immature Granulocyte Percent A 0.5 % (0-0.5); Lymphocytes Absolute Auto 1.49 K/mm3 (0.9-3.2); Lymphocytes Percent Auto 23.1 % (18.3-44.2); Mean Corpuscular HGB Conc 33.9 g/dl (32-36); Mean Corpuscular Hemoglobin 31.7 pg (26-34); Mean Corpuscular Volume 93.3 fl (80-100); Mean Platelet Volume 8.1 fl (7.4-10.4); Monocytes Absolute Auto 0.6 K/mm3 (0.1-0.6); Monocytes Percent Auto 9.8 % (2.6-8.5); Neutrophils Absolute Auto 3.9 K/mm3 (1.3-6.7); Platelet Count Result 248 k/mm3 (150-375); Red Blood Count 4.36 M/mm3 (4.2-5.4); Red Cell Distribution Width 12.1 % (11.5-14.5); White Blood Count 6.4 K/mm3 (4.5-10.0)
[2021-11-04 11:47] LABS: Alanine Aminotransferase 32 U/L (6-35); Albumin Level 4.5 g/dL (3.5-5.1); Alkaline Phosphatase 107 U/L (38-126); Anion Gap 9 mmol/L (8-16); Aspartate Amino Transferase 29 U/L (14-36); Bilirubin,Total 0.5 mg/dL (0.2-1.3); Blood Urea Nitrogen 10 mg/dL (7-17); Calcium 9.2 mg/dL (8.4-10.2); Carbon Dioxide 27 mmol/L (22-30); Chloride 100 mmol/L (98-107); Estimated Glomerular Filt Rate > 60; Glucose 112 mg/dL (65-110); Potassium 4.4 mmol/L (3.4-5.0); Sodium 136 mmol/L (137-145)
[2021-11-09 06:42] LABS: CA 15-3 16 U/mL (<32)
== END 2021-11-04 08:46 | disposition home or self-care (01) ==
LOC: ANHLAB 08:48
PROVIDERS: PCP Family Medicine; Visit Provider Internal Medicine Hematology & Oncology
DX: C50.811 Malignant neoplasm of overlapping sites of right female breast (principal); Z17.0 Estrogen receptor positive status [ER+]
CPT/HCPCS: 36415; 80053; 85025; 86300

== ENCOUNTER 2022-07-07 08:49 | Outpatient (CLI) | payer MEDICARE, SELFPAY ==
--- NOTE | ~2022-07-07 | MM_ITS ---
EXAMINATION: MM screening alejandra LT w john paul HISTORY: Cranial left mammogram, history of right mastectomy TECHNIQUE: Craniocaudal and mediolateral oblique 3-D tomosynthesis images were obtained and synthetic 2-D images were generated. CAD analysis was submitted and interpreted. COMPARISON: 06/03/2021, 05/21/2020, 04/19/2019 BREAST PARENCHYMAL COMPOSITION: The breast is heterogeneously dense, which may obscure small masses. FINDINGS: No suspicious mass, calcification, or architectural distortion are identified to suggest ma lignancy. There has been no suspicious interval change.. IMPRESSION: 1. No mammographic evidence of malignancy. 2. Recommend routine screening mammography in one year. BI-RADS Category 1: Negative Reviewed, dictated and finalized at location A.
== END 2022-07-07 08:50 | disposition home or self-care (01) ==
LOC: ANHIMG 08:55
PROVIDERS: PCP Family Medicine; Visit Provider Internal Medicine Hematology & Oncology
DX: Z12.31 Encounter for screening mammogram for malignant neoplasm of breast (principal)
CPT/HCPCS: 77063; 77067

== ENCOUNTER 2022-12-24 09:33 | Outpatient (CLI) | payer MEDICARE, SELFPAY ==
--- NOTE | ~2022-12-24 | DEXA_ITS ---
Bone Density Report Name: ELIZABETH ADAMS Age: 72 Sex: Female Ethnicity: White Date of : 1950 Indication: postmenopausal; screening for osteoporosis; cancer; Referring Provider: WILFREDO YODER Study: Bone densitometry was performed. Exam Date: December 24, 2022 Accession number: [id number] Bone Density: Region BMD T-score Z-score Classification AP Spine(L1-L4) 1.330 2.6 4.7 Normal Femoral Neck (Left) 0.945 0.9 2.7 Normal Total Hip (Left) 0.901 -0.3 1.2 Normal Femoral Neck (Right) 0.886 0.3 2.1 Normal Total Hip (Right) 0.928 -0.1 1.4 Normal Total Hip Mean 0.915 -0.2 1.3 Normal World Health Organization criteria for BMD impression classify patients as: Normal (T-score at or above -1.0), Osteopenia (T-score between -1.0 and -2.5), or Osteoporosis (T-score at or below -2.5). 10-year Fracture Risk: FRAX not reported because: All T-scores for Spine Total, Hip Total, Femoral Neck at or above -1.0 Previous Exams: Region Exam Age BMD T-score BMD Change BMD Change Date g/cm2 vs Baseline vs Previous AP Spine (L1-L4) 12/24/2022 72 1.330 2.6 -0.007 (-0.5%) -0.007 (-0.5%) 11/22/2020 70 1.336 2.6 Total Hip(Left) 12/24/2022 72 0.901 -0.3 -0.030 (-3.2%) -0.030 (-3.2%) 11/22/2020 70 0.931 -0.1 Total Hip(Right) 12/24/2022 72 0.928 -0.1 0.020 (2.2%) 0.020 (2.2%) 11/22/2020 70 0.908 -0.3 *Denotes significance at 95% confidence level, LSC for AP Spine = 0.022 g/cm2, LSC for Total Hip = 0.027 g/cm2 Clinical Information Provided by Patient: Has used the following medications: Vitamin D Has the following medical conditions: Cancer Patient maximum height was 67 Menopause Age: 52 No regular weight bearing exercise Does not regularly consume dairy products Drinks caffeinated beverages Onset of menses at age 15 Number of children 0 Impression: The patient has normal bone mass. The BMD for the Total Hip(Left) decreased, changing by -3.2% since the last DXA exam. Discussion: BONE DENSITY IS ABOVE THE MINIMUM DESIRABLE LEVEL AT ALL SKELETAL SITES TESTED. This patient?s bone mineral density is above the minimum desirable level (T-score -1.0 or better) at all sites measured. The patient should follow a healthful lifestyle (good nutrition with adequate calcium and vitamin D, and appropriate weight-bearing exercise). Follow-Up: Consider repeating this study in 3 to 4 years to reassess this patient's status, or sooner i
== END 2022-12-24 09:34 | disposition home or self-care (01) ==
LOC: ANHIMG 09:34
PROVIDERS: PCP Family Medicine; Visit Provider Internal Medicine Hematology & Oncology
DX: M85.89 Other specified disorders of bone density and structure, multiple sites (principal)
CPT/HCPCS: 77080

== ENCOUNTER 2023-04-24 08:28 | Outpatient (CLI) | payer MEDICARE, SELFPAY ==
[2023-04-24 08:42] LABS: Basophils Absolute Auto 0.1 K/mm3 (0.0-0.1); Eosinophils Absolute Auto 0.3 K/mm3 (0-0.3); Eosinophils Percent Auto 4.6 % (0-4.4); Hematocrit 41.1 % (37.0-47.0); Hemoglobin 13.8 g/dL (12.0-15.0); Immature Granulocyte Absolute 0.02 K/mm3 (0.00-0.031); Immature Granulocyte Percent A 0.3 % (0-0.5); Lymphocytes Absolute Auto 1.38 K/mm3 (0.9-3.2); Lymphocytes Percent Auto 18.8 % (18.3-44.2); Mean Corpuscular HGB Conc 33.6 g/dl (32-36); Mean Corpuscular Hemoglobin 31.8 pg (26-34); Mean Corpuscular Volume 94.7 fl (80-100); Mean Platelet Volume 8.1 fl (7.4-10.4); Monocytes Absolute Auto 0.6 K/mm3 (0.1-0.6); Monocytes Percent Auto 8.3 % (2.6-8.5); Neutrophils Absolute Auto 4.9 K/mm3 (1.3-6.7); Platelet Count Result 281 k/mm3 (150-375); Red Blood Count 4.34 M/mm3 (4.2-5.4); Red Cell Distribution Width 12.1 % (11.5-14.5); White Blood Count 7.3 K/mm3 (4.5-10.0)
[2023-04-24 10:07] LABS: Alanine Aminotransferase 32 U/L (6-35); Albumin Level 4.1 g/dL (3.5-5.1); Alkaline Phosphatase 112 U/L (38-126); Anion Gap 8 mmol/L (8-16); Aspartate Amino Transferase 29 U/L (14-36); Bilirubin,Total 0.4 mg/dL (0.2-1.3); Blood Urea Nitrogen 18 mg/dL (7-17); Calcium 9.7 mg/dL (8.4-10.2); Carbon Dioxide 29 mmol/L (22-30); Chloride 102 mmol/L (98-107); Estimated Glomerular Filt Rate > 60; Glucose 114 mg/dL (65-110); Potassium 4.1 mmol/L (3.4-5.0); Sodium 139 mmol/L (137-145)
[2023-04-27 13:52] LABS: CA 15-3 17 U/mL (<32)
== END 2023-04-24 08:29 | disposition home or self-care (01) ==
PROVIDERS: PCP Family Medicine; Visit Provider Internal Medicine Hematology & Oncology
DX: C50.811 Malignant neoplasm of overlapping sites of right female breast (principal); Z17.0 Estrogen receptor positive status [ER+]
CPT/HCPCS: 36415; 80053; 85025; 86300

== ENCOUNTER 2023-08-13 08:22 | Outpatient (CLI) | payer MEDICARE, SELFPAY ==
--- NOTE | ~2023-08-13 | MM_ITS ---
EXAMINATION: MM screening alejandra LT w john paul HISTORY: Screening TECHNIQUE: Craniocaudal and mediolateral oblique 3-D tomosynthesis images were obtained and synthetic 2-D images were generated. CAD analysis was submitted and interpreted. COMPARISON: Comparison to multiple prior studies sequentially, with oldest reviewed study dated 04/19. BREAST PARENCHYMAL COMPOSITION: Dense: The breasts are heterogeneously dense, which may obscure small masses FINDINGS: There is no evidence of suspicious mass, calcification, or architectural distortion to sugg est malignancy in either breast. There has been no suspicious interval change. IMPRESSION: 1. No mammographic evidence of malignancy. 2. Recommend routine screening mammography in one year. BI-RADS Category 1: Negative Reviewed, dictated and finalized at location A.
== END 2023-08-13 08:23 | disposition home or self-care (01) ==
PROVIDERS: PCP Family Medicine; Visit Provider Internal Medicine Hematology & Oncology
DX: Z12.31 Encounter for screening mammogram for malignant neoplasm of breast (principal)
CPT/HCPCS: 77063; 77067

== ENCOUNTER 2023-08-21 08:36 | Outpatient (CLI) | payer MEDICARE, SELFPAY ==
[2023-08-21 08:55] LABS: Basophils Absolute Auto 0.1 K/mm3 (0.0-0.1); Eosinophils Absolute Auto 0.3 K/mm3 (0-0.3); Eosinophils Percent Auto 3.8 % (0-4.4); Hematocrit 40.9 % (37.0-47.0); Hemoglobin 13.6 g/dL (12.0-15.0); Immature Granulocyte Absolute 0.03 K/mm3 (0.00-0.031); Immature Granulocyte Percent A 0.4 % (0-0.5); Lymphocytes Absolute Auto 1.37 K/mm3 (0.9-3.2); Lymphocytes Percent Auto 17.8 % (18.3-44.2); Mean Corpuscular HGB Conc 33.3 g/dl (32-36); Mean Corpuscular Volume 96.2 fl (80-100); Mean Platelet Volume 8.6 fl (7.4-10.4); Monocytes Absolute Auto 0.9 K/mm3 (0.1-0.6); Monocytes Percent Auto 11.8 % (2.6-8.5); Neutrophils Percent Auto 65.2 % (45.5-73.1); Platelet Count Result 275 k/mm3 (150-375); Red Blood Count 4.25 M/mm3 (4.2-5.4); Red Cell Distribution Width 12.7 % (11.5-14.5); White Blood Count 7.7 K/mm3 (4.5-10.0)
[2023-08-21 12:53] LABS: Alanine Aminotransferase 39 U/L (6-35); Albumin Level 4.3 g/dL (3.5-5.1); Alkaline Phosphatase 112 U/L (38-126); Anion Gap 8 mmol/L (4-12); Aspartate Amino Transferase 32 U/L (14-36); Bilirubin,Total 0.6 mg/dL (0.2-1.3); Blood Urea Nitrogen 17 mg/dL (7-17); Calcium 9.6 mg/dL (8.4-10.2); Carbon Dioxide 26 mmol/L (22-30); Chloride 102 mmol/L (98-107); Estimated Glomerular Filt Rate > 60; Glucose 103 mg/dL (65-110); Potassium 4.4 mmol/L (3.4-5.0); Sodium 136 mmol/L (137-145)
[2023-08-24 20:26] LABS: CA 15-3 15 U/mL (<32)
== END 2023-08-21 08:37 | disposition home or self-care (01) ==
LOC: ANHLAB 08:38
PROVIDERS: PCP Family Medicine; Visit Provider Internal Medicine Hematology & Oncology
DX: C50.811 Malignant neoplasm of overlapping sites of right female breast (principal); Z17.0 Estrogen receptor positive status [ER+]
CPT/HCPCS: 36415; 80053; 85025; 86300

== ENCOUNTER 2023-12-24 08:27 | Outpatient (CLI) | payer MEDICARE, SELFPAY ==
[2023-12-24 08:45] LABS: Basophils Absolute Auto 0.1 K/mm3 (0.0-0.1); Eosinophils Absolute Auto 0.3 K/mm3 (0-0.3); Eosinophils Percent Auto 4.2 % (0-4.4); Hemoglobin 13.6 g/dL (12.0-15.0); Immature Granulocyte Absolute 0.03 K/mm3 (0.00-0.031); Immature Granulocyte Percent A 0.4 % (0-0.5); Lymphocytes Absolute Auto 1.65 K/mm3 (0.9-3.2); Lymphocytes Percent Auto 20.5 % (18.3-44.2); Mean Corpuscular HGB Conc 33.2 g/dl (32-36); Mean Corpuscular Hemoglobin 31.6 pg (26-34); Mean Corpuscular Volume 95.1 fl (80-100); Mean Platelet Volume 8.3 fl (7.4-10.4); Monocytes Percent Auto 11.9 % (2.6-8.5); Platelet Count Result 263 k/mm3 (150-375); Red Blood Count 4.31 M/mm3 (4.2-5.4); Red Cell Distribution Width 12.5 % (11.5-14.5); White Blood Count 8.1 K/mm3 (4.5-10.0)
[2023-12-24 10:59] LABS: Alanine Aminotransferase 39 U/L (6-35); Albumin Level 4.4 g/dL (3.5-5.1); Alkaline Phosphatase 109 U/L (38-126); Anion Gap 8 mmol/L (4-12); Aspartate Amino Transferase 41 U/L (14-36); Bilirubin,Total 0.3 mg/dL (0.2-1.3); Blood Urea Nitrogen 14 mg/dL (7-17); Calcium 9.2 mg/dL (8.4-10.2); Carbon Dioxide 29 mmol/L (22-30); Chloride 100 mmol/L (98-107); Estimated Glomerular Filt Rate > 60; Glucose 92 mg/dL (65-110); Potassium 4.5 mmol/L (3.4-5.0); Sodium 137 mmol/L (137-145)
[2023-12-26 06:18] LABS: CA 15-3 17 U/mL (<32)
== END 2023-12-24 08:28 | disposition home or self-care (01) ==
LOC: ANHLAB 08:29
PROVIDERS: PCP Family Medicine; Visit Provider Internal Medicine Hematology & Oncology
DX: C50.811 Malignant neoplasm of overlapping sites of right female breast (principal); Z17.0 Estrogen receptor positive status [ER+]
CPT/HCPCS: 36415; 80053; 85025; 86300

== ENCOUNTER 2024-06-27 09:05 | Outpatient (CLI) | payer MEDICARE, SELFPAY ==
[2024-06-27 09:32] LABS: Basophils Absolute Auto 0.1 K/mm3 (0.0-0.1); Basophils Percent Auto 0.9 % (0.2-1.2); Eosinophils Absolute Auto 0.5 K/mm3 (0-0.3); Eosinophils Percent Auto 5.3 % (0-4.4); Hematocrit 41.7 % (37.0-47.0); Hemoglobin 13.8 g/dL (12.0-15.0); Immature Granulocyte Absolute 0.05 K/mm3 (0.00-0.031); Immature Granulocyte Percent A 0.6 % (0-0.5); Lymphocytes Absolute Auto 1.62 K/mm3 (0.9-3.2); Lymphocytes Percent Auto 18.7 % (18.3-44.2); Mean Corpuscular HGB Conc 33.1 g/dl (32-36); Mean Corpuscular Hemoglobin 31.4 pg (26-34); Mean Platelet Volume 8.3 fl (7.4-10.4); Monocytes Absolute Auto 0.8 K/mm3 (0.1-0.6); Monocytes Percent Auto 9.2 % (2.6-8.5); Neutrophils Absolute Auto 5.7 K/mm3 (1.3-6.7); Neutrophils Percent Auto 65.3 % (45.5-73.1); Platelet Count Result 267 k/mm3 (150-375); Red Blood Count 4.39 M/mm3 (4.2-5.4); Red Cell Distribution Width 12.6 % (11.5-14.5); White Blood Count 8.7 K/mm3 (4.5-10.0)
--- OUTSIDE RECORDS SUMMARY | 2024-06-27 09:43 | XMS_ITS | Clinical Summary ---
Author Organization [facility] [address] [facility] Address [address] [place] [address] Care Team Providers Care Merchandise Pickup/Receiving Associate Name Role Phone Markie Atwood MD Primary Care Provider [phone] Allergies No known active allergies Medications aspirin 81 mg enteric coated tablet Take 1 tablet (81 mg total) by mouth daily Active naproxen (ALEVE) 220 mg tablet Take by mouth 2 (two) times a day with meals Active ALPRAZolam (XANAX) 0.5 mg tabletIndicatio ns:Anxiety Take 1 tablet (0.5 mg total) by mouth 3 (three) times a day as needed for anxiety 30 tablet 0 Active Additional Information Patient not taking.Reported on 12/15/2023 anastrozole (ARIMIDEX) 1 mg tablet 1 Active multivitamin tablet Take 1 tablet by mouth daily Active loratadine (CLARITIN) 10 mg tablet Take 1 tablet (10 mg total) by mouth daily Active psyllium husk, with sugar, (METAMUCIL FREE ORAL) Take by mouth Active ergocalciferol, vitamin D2, (VITAMIN D2 ORAL) Take by mouth Active atorvastatin (LIPITOR) 20 mg tablet TAKE 1 TABLET(20 MG) BY MOUTH DAILY 90 tablet 1 4 Active Active Problems Problem Noted Date Diagnosed Date Malignant neoplasm of overla pping sites of right breast in female, estrogen receptor positive 12/15/2023 Encounter for screening colonoscopy 11/30/2020 Overview (11/30/2020): Added automatically from request for surgery [id number] Immunizations Immunization Administration Dates Next Due Influenza, Quadrivalent, Hig h Dose, Preservative Free, Intrr 12/02/2022 Influenza, Quadrivalent, Spl it, Intramuscular 01/21/2015 Influenza, Quadrivalent, Spl it, Preservative Free, Intramuscular 12/30/2016 Influenza, Trivalent, High D ose, Split, Preservative Free, Intramuscular 12/15/2023,02/11/2019,01/07/2018 Influenza, Unspecified 12/15/2023(Deferr ed: Patient Refused),12/02/2022(Deferred: Patient Refused),03/23/2022(Deferred: Patient Refused),03/23/2021(Deferred: Patient Refused),09/03/2020(Deferred: Patient Refused),03/23/2019(Deferred: Patient Refused) Pfizer SARS-CoV-2 Monovalent Vaccination (12+ Yrs) PURPLE 08/14/2020,07/24/2020 Pneumococcal Conjugate PCV 13 02/11/2019 Pneumococcal Conjugate, Unspecified 08/21(Deferred: Patient Refused),03/23/2019(Deferred: Patient Refused) Surgical History Surgery Date Site/Laterality Comments BREAST LUMPECTOMY Right BREAST BIOPSY 05/03/2019 Right COLONOSCOPY 05/21/2006 - 06/20/2006 MASTECTOMY Right Family History Medical History Relation Name Comments Diabetes Mother Heart disease Mother Relation Name Status Comments Father Mother Social History Tobacco Use Types Packs/Day Years Used Date Smoking Tobacco: Never Smokeless Tobacco: Never Tobacco Cessation:Counseling Given: Not Answered Alcohol Use Standard Drinks/Week Comments Yes 3 (1 standard drink = 0.6 oz pur e alcohol) PHQ-2 Answer Date Recorded PHQ-2 Total Score (If total score is 3 or more points, staff should administer the PHQ-9) 0 12/15/2023 Comments Unknown Sex and Gender Information Value Date Recorded Sex Assigned at Not on file Legal Sex Female 3:18 AM LEGUILLON DEBEADER Gender Identity Female 12/20/2020 2:50 PM CDT Sexual Orientation Not on file Obstetrics History Last Filed Vital Signs Vital Sign Reading Time Taken Comments Blood Pressure 132/82 12/15/2023 7:55 AM CDT Pulse 120 12/15/2023 7:55 AM CDT Temperature 36.8 C (98.2 F) 12/15/2023 7:55 AM CDT Respiratory Rate 18 04/15/2023 10:0 8 AM LEGUILLON DEBEADER Oxygen Saturation 98% 12/15/2023 7:55 AM CDT Inhaled Oxygen Concentration - - Weight 87.5 kg (192 lb 14.4 oz) 12/15/2023 7:55 AM CDT Height 170.2 cm (5' 7 ) 12/15/2023 7:55 AM CDT Body Mass Index 30.21 12/15/2023 7:55 AM CDT Plan of Treatment Health Maintenance Due Date Last Done Comments Hepatitis C Screening 1950 DTaP/Tdap/Td Vaccine (1 - Tdap) 10/17/1963 Hepatitis B Screening 1970 Zoster Vaccine (1 of 2) 10/17/1971 Pneumococcal vaccine 65+ (2 of 2 - PPSV23) 04/08/2019 02/11/2019 Covid-19 Vaccine (3 - Pfizer risk series) 09/11/2020 08/14/2020, 07/24/2020 Breast Cancer Screening-Mammogram 08/12/2024 08/13/2023, 08/13/2023, 07/07/2022, Additional history exists Depression Screening 12/14/2024 12/15/2023, 12/02/2022, 11/26/2021, Additional history exists Fall Risk Assessment 12/14/2024 12/15/2023, 12/02/2022, 11/26/2021, Additional history exists Well Visit 65+ 12/14/2024 12/15/2023, 11/21, 11/26/2021, Additional history exists Osteoporosis Screening-Bone Density Scan 12/24/2024 12/24/2022, 11/22/2020 Colon Cancer Screening-Colonoscopy 01/01/2031 01/01/2021, 06/19/2006, 06/19/2006, Additional history exists Colon Cancer Screening-CT Colonography Discontinued 01/01/2021, 06/19/2006, 06/19/2006, Additional history exists Colon Cancer Screening-DNA Stool Discontinued 01/01/2021, 06/19/2006, 06/19/2006, Additional history exists Colon Cancer Screening-FIT Discontinued 01/01, 06/19/2006, 06/19/2006, Additional history exists Colon Cancer Screening-Sigmoidoscopy Discontinued 01/01/2021, 06/19/2006, 06/19/2006, Additional history exists Influenza Vaccine Completed 12/15/2023, , 02/11/2019, Additional history exists Procedures Procedure Name Priority Date/Time Associated Diagnosis Comments SCREENING MAMMOGRAM Schedule Routine, Read Routine (OP Routine) 08/13/2023 DEXA AXIAL SKELETON BONE DENSITY 1 OR MORE SITES Schedule Routine, Read Routine (OP Routine) 12/24/2022 COLONOSCOPY 01/01/2021 8:27 AM CDT from Last 3 Months or Most Recently Relevant to Health Maintenance Results * Screening Mammogram (08/13/2023) Anatomical Region Laterality Modality Breast N/A Mammography Historical Provider MD URBINA MAMMO PROCEDURES Leslie l Result * Dexa Axial Skeleton Bone Density 1 or 2 Site (12/24/2022) Anatomical Region Laterality Modality Body N/A Radiographic Fany ging Historical Provider MD URBINA DXA PROCEDURES Final Result * COLONOSCOPY (01/01/2021 8:27 AM CDT) Anatomical Region Laterality Modality Other Narrative Procedure Note Joey Arshad MD - 01/01/2021 8:27 AM CDT [facility] Patient Name: Cira Massey Procedure Date: 01/01/2021 8:27 AM Date of : 1950 Admit Type: Outpatient Age: 70 Gender: Female Attending MD: Joey Arshad M.D. Note Status: Finalized Patient Profile: Refer to note in patient chart for documentation of history and physical. Procedure: Colonoscopy Indications: Screening for colorectal malignant neoplasm, Last colonoscopy: May 2006 Referring MD: Markie Atwood M.D. Providers: Joey Arshad M.D. Impression: - Hemorrhoids found on perianal exam. - Diverticulosis in the sigmoid colon. - The examination was otherwise normal. - No specimens collected. Recommendation: - Discharge patient to home. - Resume previous diet. - Continue present medications. - Repeat colonoscopy in 5 years for surveillance. - Return to primary care physician as previously scheduled. Medicines: Propofol per Anesthesia Complications: No immediate complications. Estimated Blood Loss: Estimated blood loss: none. Procedure: Pre-Anesthesia Assessment: - This assessment was completed [Time ofAssessment] prior to the administration of sedation. The benefits, risks and alternatives of theprocedure and sedation were discussed and informed consentwas obtained. All questions were answered. Please referto the signed informed consent document in the medical record. The bowel preparation used was Miralax and bisacodyl tablets via single dose instruction. The scope was passed under direct vision. TheColonoscope [id number] was introduced through the anus and advanced to the the cecum, identified by appendiceal orifice and ileocecal valve. The colonoscopy was performed with ease. Thecolonoscopy was performed without difficulty. The patient tolerated the procedure well. The quality of thebowel preparation was excellent. Findings: Hemorrhoids were found on perianal exam. Multiple small and large-mouthed diverticula were found in thesigmoid colon. The exam was otherwise without abnormality. Electronically signed by Joey Arshad M.D. Joey Arshad M.D. 01/01/2021 10:03:47 AM Number of Addenda: 0 Note Initiated On: 01/01/2021 8:27 AM Procedure Code(s): --- Professional --- G0121, Colorectal cancer screening; colonoscopy on individual not meeting criteria for high risk Diagnosis Code(s): --- Professional --- K57.30, Diverticulosis of large intestine without perforation orabscess without bleeding K64.9, Unspecified hemorrhoids Z12.11, Encounter for screening for malignant neoplasm of colon CPT copyright 2019 [employer]. All rights reserved. The codes documented in this report are preliminary and upon automobile and property underwriter reviewmay be revised to meet current compliance requirements. Recognized by the [employer] for promoting quality in endoscopy Joey Arshad MD ENDOSCOPY PROCEDURES Final Re sult from Last 3 Months or Most Recently Relevant to Health Maintenance Insurance [facility] MEDIC[facility] ADVANT[facility] Advance Directives For more information, please contact: [phone] * Full Code (Latest Code Status on File) Date Activated Date Inactivated Comments 01/01/2021 8:25 AM 01/01/2021 2:48 PM * Full Code Date Activated Date Inactivated Comments 01/01/2021 8:25 AM 01/01/2021 8:25 AM Care Teams Merchandise Pickup/Receiving Associate Relationship Specialty Start Date End Date Markie Atwood MD [address] [place] [address] PCP - General Family Medicine 05/18/19
--- OUTSIDE RECORDS SUMMARY | 2024-06-27 09:43 | XMS_ITS | Clinical Summary ---
Author Organization [facility]om[facility] Address [address] [place] [address] Care Team Providers Care Supervisor Tower Name Role Phone Markie Atwood MD Primary Care Provider [phone] Allergies No known active allergies Medications IRON ORAL Take by mouth. Active multivitamin (DAILY-KRISTINA) tablet Take 1 Tablet by mouth daily. Active loratadine (CLARITIN) 10 mg tablet Take 10 mg by mouth daily. Active anastrozole (ARIMIDEX) 1 mg tabletIndication s:Malignant neoplasm of overlapping sites of right breast in female, estrogen receptor positive (CMS/HCC) TAKE 1 TABLET(1 MG) BY MOUTH DAILY 90 Tablet 3 11/16/2023 Active atorvastatin (LIPITOR) 20 mg tablet Take 20 mg by mouth daily. 10/12/2023 Active Active Problems Patient Care Coordination No te Formatting of this note migh t be different from the original. Primary Care: Markie Atwood MD Referring Provider: Markie Atwood MD [address] [address] Other: Dr. Alysa Lau MD Problem Noted Date Diagnosed Date S/P right mastectomy 06/08/2020 Chemotherapy induced neutropenia 07/11/2019 Malignant neoplasm of overla pping sites of right breast in female, estrogen receptor positive 05/13/2019 Resolved Problems Problem Noted Date Diagnosed Date Resolved Date Seroma of breast 01/27/2020 06/08/2020 Family History Medical History Relation Name Comments Cancer Maternal Grandmother skin ca ncer on her nose Diabetes Mother Heart Disease Mother Breast Cancer Other great aunt 60's Diabetes Sister Relation Name Status Comments Brother 1 Alive Brother 2 Alive Father Maternal Grandmother Mother Other great aunt 60's Alive Sister Alive Social History Tobacco Use Types Packs/Day Years Used Date Smoking Tobacco: Never Smokeless Tobacco: Never Alcohol Use Standard Drinks/Week Comments Yes 0 (1 standard drink = 0.6 oz pur e alcohol) Comments No Sex and Gender Information Value Date Recorded Sex Assigned at Not on file Legal Sex Female 11:11 PM CDT Gender Identity Not on file Sexual Orientation Not on file Last Filed Vital Signs Vital Sign Reading Time Taken Comments Blood Pressure 174/87 01/08/2024 10:09 AM CDT nervous Pulse 109 01/08/2024 10:01 AM CDT Temperature 36.4 C (97.5 F) 01/08/2024 10:01 AM CDT Respiratory Rate 16 01/08/2024 10:0 1 AM CDT Oxygen Saturation 96% 01/08/2024 10: 01 AM CDT Inhaled Oxygen Concentration - - Weight 86.1 kg (189 lb 12.8 oz) 024 10:01 AM CDT Height 167.6 cm (5' 6 ) 11/18/2021 9:35 AM CDT Body Mass Index 30.63 11/18/2021 9:35 AM CDT Plan of Treatment Upcoming Encounters Date Type Department Care Team (Late st Contact Info) Description 07/08/2024 9:45 AM CDT Office Visit [facility] [address] [place] [address] [facility] [address] [place] [address] Yonatan Gomez MD [address] [place] [address] Health Maintenance Due Date Last Done Comments DTAP/TDAP/TD VACCINES (1 - Tdap) 10/17/1971 ZOSTER VACCINE (1 of 2) 10/17/1971 FIT-DNA Q 3 years 1997 FIT/FOBT Q 1 year 1997 Flex Sig/CT Colonography Q 5 years 1997 PNEUMOCOCCAL VACCINE 50+ YEA RS (2 of 2 - PPSV23) 04/08/2019 02/11/2019 [place] Preventative Visit/Annual Wellness Visit 03/23/2024 BREAST CANCER SCREENING 08/12/2024 08/13/19 24, 07/07/2022, 05/21/2020, Additional history exists RSV VACCINE (60+ or ) (1 - 1-dose 75+ series) 10/17/2027 COLORECTAL SCREENING 01/01/2031 01/01/2021, 01/02/20 Colorectal Cancer Screening 01/01/2031 OSTEOPOROSIS SCREENING Completed 12/24/2022 INFLUENZA VACCINE Completed 12/15/2023, , 02/11/2019, Additional history exists Medical Devices Implanted Type Area Javascript Application Developer Device Identifier Shelf Expiration Date Model / Serial / Lot Auto Claims Adjuster Clip Surgiclip Ii Kamran 9.75in [id number] - [id number] Implanted:Qty: 1 on 10/12/2019 by Alysa Lau MD at [facility] Clip Right: Axilla [employer] - COVIDIEN 05/20/2024 [id number] / / [id number] Hemostatic Surgicel 4x8in 1949 - [id number] Implanted:Qty: 2 on 10/12/2019 by Alysa Lau MD at [facility] [place] Hemostatic Right: Axilla [employer] 11/21/20231951 / / [id number] Procedures Procedure Name Priority Date/Time Associated Diagnosis Comments MAMMO SCREENING BILAT Routine 08/13/2023 2:33 PM CDT from Last 3 Months or Most Recently Relevant to Health Maintenance Results * MAMMO SCREENING BILAT (08/13/2023 2:33 PM CDT) Anatomical Region Laterality Modality Breast Bilateral Mammography Yonatan Gomez MD MAMMO ORDERABLES Final Result from Last 3 Months or Most Recently Relevant to Health Maintenance Insurance [facility] [id number] RX OPT[employer] RX Member Subscriber Plan / Payer (Ef fective 2019-Present) Name:Cira Massey Relation to Subscriber:Self Name:Cira Massey Payer ID:Not on file Group ID:[id number] Type:RX Medicare Part D Address: [place] Advance Directives For more information, please contact: [phone] * Full Code (Latest Code Status on File) Date Activated Date Inactivated Comments 10/12/2019 2:13 PM 10/13/2019 3:02 PM Care Teams Supervisor Tower Relationship Specialty Start Date End Date Markie Atwood MD PCP - General Family Practice 07/26/19
--- OUTSIDE RECORDS SUMMARY | 2024-06-27 09:43 | XMS_ITS | Referral Summary ---
Author Organization [facility] [address] [facility] Address [address] [place] [address] Care Team Providers Care Magnet Valve Assembler Name Role Phone Markie Atwood MD Primary Care Provider [phone] Allergies No known active allergies Medications aspirin [...] (11/30/2020): Added automatically from request for surgery [id number] Immunizations Immunization Administration Dates Next Due Influenza, [...] Conjugate, Unspecified 08/21(Deferred: Patient Refused),03/23/2019(Deferred: Patient Refused) Social History Tobacco Use Types Packs/Day Years [...] on file Legal Sex Female 3:18 AM ENVIRONMENTAL MARKETING REPRESENTATIVE Gender Identity Female 12/20/2020 2:50 PM CDT Sexual Orientation Not on file Last Filed Vital Signs Vital Sign Reading Time Taken Comments Blood Pressure 132/82 12/15/2023 7:55 AM CDT Pulse 120 12/15/2023 7:55 AM CDT Temperature 36.8 C (98.2 F) 12/15/2023 7:55 AM CDT Respiratory Rate 18 04/15/2023 10:0 8 AM ENVIRONMENTAL MARKETING REPRESENTATIVE Oxygen Saturation 98% 12/15/2023 7:55 AM CDT Inhaled Oxygen Concentration - - Weight 87.5 kg (192 lb 14.4 oz) 12/15/2023 7:55 AM CDT Height 170.2 cm (5' 7 ) 12/15/2023 7:55 AM CDT Body Mass Index 30.21 12/15/2023 7:55 AM CDT Plan of Treatment Not on file Procedures Procedure Name Priority Date/Time Associated Diagnosis [...] Arshad MD - 01/01/2021 8:27 AM CDT [facility] Patient Name: Cira Massey Procedure Date: [...] scope was passed under direct vision. TheColonoscope [id number] was introduced through the anus and advanced [...] malignant neoplasm of colon CPT copyright 2019 [employer]. All rights reserved. The codes documented in this report are preliminary and upon associate professor of kinesiology reviewmay be revised to meet current compliance requirements. Recognized by the [place] [employer] G[employer] for promoting quality in endoscopy Joey Arshad MD ENDOSCOPY PROCEDURES Final Re sult from Last 3 Months or Most Recently Relevant to Health Maintenance Insurance [facility]IC[facility] ADVANTAGE [facility] Address: [address] [address] [place] [address] [facility] MEDICARE ADVANTAGE Advance Directives For more information, please contact: [phone] * Full Code (Latest Code Status on File) Date Activated Date Inactivated Comments 01/01/2021 8:25 AM 01/01/2021 2:48 PM * Full Code Date Activated Date Inactivated Comments 01/01/2021 8:25 AM 01/01/2021 8:25 AM Care Teams Magnet Valve Assembler Relationship Specialty Start Date End Date Markie Atwood MD [address] [place] [address] PCP - General Family Medicine 05/18/19
--- OUTSIDE RECORDS SUMMARY | 2024-06-27 09:43 | XMS_ITS | Encounter Summary ---
Author Organization [facility] Address [address] [place] [address] Care Team Providers Care Marketing Education Teacher Name Role Phone Markie Atwood MD Primary Care Provider [phone] Encounter Details Date Type Department Care Team (Late Contact Info) Description 10/26/2019 Chart Note [facility] Radiation Therapy [address] [place] [address] [place] [address] [place] [address] Social History Tobacco Use Types Packs/Day Years Used Date Smoking Tobacco: Never Smokeless Tobacco: Never Alcohol Use Standard Drinks/Week Comments Yes 0 (1 standard drink = 0.6 oz pur e alcohol) Comments No Sex and Gender Information Value Date Recorded Sex Assigned at Not on file Legal Sex Female 11:11 PM CDT Gender Identity Not on file Sexual Orientation Not on file COVID-19 Exposure Response Date Recorded In the last month, have you been in contact with someone who was confirmed or suspected to have Coronavirus / COVID-19? No / Unsure 10/27/2019 10:22 AM CDT documented as of this encounter Plan of Treatment Upcoming Encounters Date Type Department Care Team (Late Contact Info) Description 07/08/2024 9:45 AM CDT Office Visit [facility] Oncology and Hematology - [place] [address] [facility] [address] [place] [address] Yonatan Gomez MD [address] [place] [address] documented as of this encounter Visit Diagnoses Not on filedocumented in this encounter Care Teams Marketing Education Teacher Relationship Specialty Start Date End Date Markie Atwood MD PCP - General Family Practice 07/26/19 documented as of this encounter
[2024-06-27 12:15] LABS: Alanine Aminotransferase 38 U/L (6-35); Albumin Level 4.3 g/dL (3.5-5.1); Alkaline Phosphatase 115 U/L (38-126); Anion Gap 11 mmol/L (4-12); Aspartate Amino Transferase 34 U/L (14-36); Bilirubin,Total 0.3 mg/dL (0.2-1.3); Blood Urea Nitrogen 18 mg/dL (7-17); Calcium 9.4 mg/dL (8.4-10.2); Carbon Dioxide 27 mmol/L (22-30); Chloride 102 mmol/L (98-107); Estimated Glomerular Filt Rate > 60; Glucose 112 mg/dL (65-110); Potassium 4.3 mmol/L (3.4-5.0); Sodium 140 mmol/L (137-145)
[2024-06-29 01:42] LABS: CA 15-3 14 U/mL (<32)
== END 2024-06-27 09:06 | disposition home or self-care (01) ==
LOC: ANHLAB 09:06
PROVIDERS: PCP Family Medicine; Visit Provider Internal Medicine Hematology & Oncology
DX: C50.811 Malignant neoplasm of overlapping sites of right female breast (principal); Z17.0 Estrogen receptor positive status [ER+]
CPT/HCPCS: 36415; 80053; 85025; 86300

== ENCOUNTER 2024-12-14 08:09 | Outpatient (CLI) | payer MEDICARE, SELFPAY ==
--- NOTE | ~2024-12-14 | MM_ITS ---
EXAMINATION: MM screening alejandra LT w john paul INDICATION: Asymptomatic, referred for screening mammogram. History of Right mastectomy 2019. COMPARISON: 08/13/2023 through 05/21/2020 TECHNIQUE: Digital Breast Tomosynthesis CC, MLO views were obtained of LEFT breast with computer-aided detection to assist in interpretation of the study. FINDINGS: The breasts are heterogeneously dense, which may obscure small masses. No focal dominant mass, architectural distortion, or suspicious microcalcifications are identified. There are no features to suggest malignancy. IMPRESSION: 1. No mammographic evidence of malignancy. 2. Recommend routine screening mammography in one year. BI-RADS Category 1: Negative Reviewed, dictated and finalized at location B.
--- OUTSIDE RECORDS SUMMARY | 2024-12-14 08:23 | XMS_ITS | Clinical Summary ---
Author Organization [facility] [place] [facility] [place] 163 [facility] Address [address] [place] [address] Care Team Providers Care Tube Rebuilder Name Role Phone Markie Atwood MD Primary Care Provider [phone] Allergies No known active allergies Medications aspirin [...] MG) BY MOUTH DAILY 90 tablet 1 5 Active Active Problems Problem Noted Date Diagnosed Date Malignant neoplasm of overla pping sites of right breast in female, estrogen receptor positive 12/15/2023 Encounter for screening colonoscopy 11/30/2020 Overview (11/30/2020): Added automatically from request for surgery [id number] Encounters Date Type Department Care Team Description 11/16/2024 Telephone [facility] Care Organization [address] [place] [id number] Lisa Samuel MA Chart Review (Med adherence ) from Last 3 Months Immunizations Immunization Administration Dates Next Due Influenza, [...] on file Legal Sex Female 3:18 AM DIRECTOR MEDICAL SCIENCE Gender Identity Female 12/20/2020 2:50 PM CDT Sexual Orientation Not on file Obstetrics History Last Filed Vital Signs Vital Sign Reading Time Taken Comments Blood Pressure 132/82 12/15/2023 7:55 AM CDT Pulse 120 12/15/2023 7:55 AM CDT Temperature 36.8 C (98.2 F) 12/15/2023 7:55 AM CDT Respiratory Rate 18 04/15/2023 10:0 8 AM DIRECTOR MEDICAL SCIENCE Oxygen Saturation 98% 12/15/2023 7:55 AM CDT Inhaled Oxygen Concentration - - Weight 87.5 kg (192 lb 14.4 oz) 12/15/2023 7:55 AM CDT Height 170.2 cm (5' 7) 12/15/2023 7:55 AM CDT Body Mass Index 30.21 12/15/2023 7:55 AM CDT Plan of Treatment Health Maintenance Due Date Last Done Comments Hepatitis C Screening 1950 DTaP/Tdap/Td Vaccine (1 - Tdap) 10/17/1963 Hepatitis B Screening 1970 Zoster Vaccine (1 of 2) 10/17/1971 Pneumococcal vaccine 65+ (2 of 2 - PPSV23, PCV20, or PCV21) 04/08/2019 02/11/2019 Covid-19 Vaccine (3 - Pfizer risk series) 09/11/2020 08/14/2020, 07/24/2020 Breast Cancer Screening-Mammogram 08/12/2024 08/13/2023, 08/13/2023, 07/07/2022, Additional history exists Influenza Vaccine (#1) 2024 , 12/02/2022, 02/11/2019, Additional history exists Depression Screening 12/14/2024 12/15/2023, [...] Discontinued 01/01/2021, 06/19/2006, 06/19/2006, Additional history exists Procedures Procedure Name Priority [...] Anatomical Region Laterality Modality Breast N/A Mammography us Historical Provider MD URBINA MAMMO PROCEDURES Leslie l Result * Dexa Axial Skeleton Bone Density 1 or 2 Site (12/24/2022) Anatomical Region Laterality Modality Body N/A Radiographic Fany ging us Historical Provider MD URBINA DXA PROCEDURES Final Result * COLONOSCOPY (01/01/2021 8:27 AM CDT) Anatomical Region Laterality Modality Other Narrative Procedure Note Joey Arshad MD - 01/01/2021 8:27 AM CDT [facility] Patient Name: Cira Massey Procedure [...] scope was passed under direct vision. TheColonoscope [id number] was introduced through the anus and advanced [...] malignant neoplasm of colon CPT copyright 2019 [employer]. All rights reserved. The codes documented in this report are preliminary and upon cv rn reviewmay be revised to meet current compliance requirements. Recognized by the [employer] for promoting quality in endoscopy Joey Arshad MD ENDOSCOPY PROCEDURES Final Re sult from Last 3 Months or Most Recently Relevant to Health Maintenance Insurance [facility] MEDICARE ADVANTAGE [facility] MEDIC[facility] ADVANTAGE Advance Directives For more information, please contact: [phone] * Full Code (Latest Code Status on File) Date Activated Date Inactivated Comments 01/01/2021 8:25 AM 01/01/2021 2:48 PM * Full Code Date Activated Date Inactivated Comments 01/01/2021 8:25 AM 01/01/2021 8:25 AM Care Teams Tube Rebuilder Relationship Specialty Start Date End Date Markie Atwood MD [address] [place] [address] PCP - General Family Medicine 05/18/19
--- OUTSIDE RECORDS SUMMARY | 2024-12-14 08:23 | XMS_ITS | Encounter Summary ---
Author Organization [facility] Address [address] [place] [address] Care Team Providers Care Aircraft Engine Installer Name Role Phone Markie Atwood MD Primary Care Provider [phone] Encounter Details Date Type Department Care Team (Late Contact Info) Description 10/26/2019 Chart Note [facility] Radiation Therapy [address] [place] [address] [place] [address] [place] [address] Social History Tobacco Use Types [...] Department Care Team (Late Contact Info) Description 01/12/2025 10:15 AM CDT Office Visit [facility] Oncology and Hematology - [place] [address] [facility] [facility] [address] [place] [address] Yonatan Gomez MD [address] [facility] [address] [place] [address] documented as of this encounter Visit Diagnoses Not on filedocumented in this encounter Care Teams Aircraft Engine Installer Relationship Specialty Start Date End Date Markie Atwood MD PCP - General Family Practice 07/26/19 documented as of this encounter
--- OUTSIDE RECORDS SUMMARY | 2024-12-14 08:23 | XMS_ITS | Clinical Summary ---
Author Organization [facility] Address [address] [address] Care Team Providers Care Outdoor Illuminating Engineer Name Role Phone Markie Atwood MD Primary Care Provider [phone] Allergies No known active allergies Medications IRON ORAL Take by mouth. Active multivitamin (DAILY-KRISTINA) tablet Take 1 Tablet by mouth daily. Active loratadine (CLARITIN) 10 mg tablet Take 10 mg by mouth daily. Active atorvastatin (LIPITOR) 20 mg tablet Take 20 mg by mouth daily. 4 Active anastrozole (ARIMIDEX) 1 mg tabletIndicatio ns:Malignant neoplasm of overlapping sites of right breast in female, estrogen receptor positive (CMS/HCC) TAKE 1 TABLET(1 MG) BY MOUTH DAILY 90 Tablet 3 5 Active anastrozole (ARIMIDEX) 1 mg tabletIndicatio ns:Malignant neoplasm of overlapping sites of right breast in female, estrogen receptor positive (CMS/HCC) TAKE 1 TABLET(1 MG) BY MOUTH DAILY 90 Tablet 3 4 12/13/19 25 Discontinued Active Problems Patient Care Coordination No te Formatting of this note migh t be different from the original. Primary Care: Markie Atwood MD Referring Provider: Markie Atwood MD [address] [place] [address] Other: Dr. Alysa Lau MD Problem Noted Date Diagnosed Date S/P right mastectomy 06/08/2020 Chemotherapy induced neutropenia 07/11/2019 Malignant neoplasm of overla pping sites of right breast in female, estrogen receptor positive 05/13/2019 Resolved Problems Problem Noted Date Diagnosed Date Resolved Date Seroma of breast 01/27/2020 06/08/2020 Encounters Date Type Department Care Team Description 12/12/2024 Refill [facility] Oncology and Hematology - [place] [address] [place] [address] Yonatan Gomez MD Malignant neoplasm of overlapping sites of right breast in female, estrogen receptor positive (CMS/HCC) from Last 3 Months Family History Medical History Relation Name Comments [...] Answered Alcohol Use Standard Drinks/Week Comments Yes 0 (1 standard drink = 0.6 oz pur e alcohol) Comments No Sex and Gender Information Value Date Recorded Sex Assigned at Not on file Legal Sex Female 11:11 PM CDT Gender Identity Not on file Sexual Orientation Not on file Last Filed Vital Signs Vital Sign Reading Time Taken Comments Blood Pressure 142/90 07/08/2024 9:23 AM CDT Pt verbally stated that she is nervous Pulse 131 07/08/2024 9:23 AM CDT Temperature 36 C (96.8 F) 07/08/2024 9:21 AM CDT Respiratory Rate 16 07/08/2024 9:21 AM CDT Oxygen Saturation 94% 07/08/2024 9:2 1 AM CDT Inhaled Oxygen Concentration - - Weight 88 kg (194 lb) 07/08/2024 9:21 AM CDT Height 167.6 cm (5' 6) 11/18/2021 9:35 AM CDT Body Mass Index 31.31 11/18/2021 9:35 AM CDT Plan of Treatment Upcoming Encounters Date Type Department Care Team (Late st Contact Info) Description 01/12/2025 10:15 AM CDT Office Visit [facility] Oncology and Hematology [place] [address] [place] [address] Yonatan Gomez MD [address] [facility] [address] [place] [address] Health Maintenance Due Date Last Done Comments DTAP/TDAP/TD VACCINES (1 - Tdap) 10/17/1971 ZOSTER VACCINE (1 of 2) 10/17/1971 FIT-DNA Q 3 years 1997 FIT/FOBT Q 1 year 1997 Flex Sig/CT Colonography Q 5 years 1997 PNEUMOCOCCAL VACCINE 50+ YEA RS (2 of 2 - PPSV23, PCV20, or PCV21) 04/08/2019 02/11/2019 BREAST CANCER SCREENING 08/12/2024 08/13/19 24, 07/07/2022, 05/21/2020, Additional history exists INFLUENZA VACCINE (#1) 2024 , 12/02/2022, 02/11/2019, Additional history exists RSV VACCINE (60+ or ) (1 - 1-dose 75+ series) 10/17/2027 OSTEOPOROSIS SCREENING 12/25/2027 12/24/2022 COLORECTAL SCREENING 01/01/2031 01/01/2021, 01/02/20 21 Colorectal Cancer Screening 01/01/2031 Medical Devices Implanted Type Area Diesel Fitter Mechanic Device Identifier Shelf Expiration Date Model / Serial / Lot Planning And Analysis Manager Clip Surgiclip Ii Kamran 9.75in [id number] - [id number] Implanted:Qty: 1 on 10/12/2019 by Alysa Lau MD at [facility] [place] Clip Right: Axilla [employer] - COVIDIEN 05/20/2024 [id number] / / [id number] Hemostatic Surgicel 4x8in 1949 - [id number] Implanted:Qty: 2 on 10/12/2019 by Alysa Lau MD at [facility] [place] Hemostatic Right: Axilla [employer] 11/21/20231951 / / [id number] Procedures Procedure Name Priority Date/Time Associated Diagnosis Comments MAMMO SCREENING BILAT Routine 08/13/2023 2:33 PM CDT from Last 3 Months or Most Recently Relevant to Health Maintenance Results * MAMMO SCREENING BILAT (08/13/2023 2:33 PM CDT) Anatomical Region Laterality Modality Breast Bilateral Mammography Yonatan Gomez MD MAMMO ORDERABLES Final Result from Last 3 Months or Most Recently Relevant to Health Maintenance Insurance RX OPTUM RX Member Subscriber Plan / Payer (Ef fective 2019-Present) Name:Cira Massey Ryan Relation to Subscriber:Self Name:Cira Massey Ryan Payer ID:Not on file Group ID:[id number] Type:RX Medicare Part D Address: [address] [facility] [address] Advance Directives For more information, please contact: [phone] * Full Code (Latest Code Status on File) Date Activated Date Inactivated Comments 10/12/2019 2:13 PM 10/13/2019 3:02 PM Care Teams Outdoor Illuminating Engineer Relationship Specialty Start Date End Date Markie Atwood MD PCP - General Family Practice 07/26/19
== END 2024-12-14 08:10 | disposition home or self-care (01) ==
LOC: ANHFOHIMG 08:12
PROVIDERS: PCP Family Medicine; Visit Provider Internal Medicine Hematology & Oncology
DX: Z12.31 Encounter for screening mammogram for malignant neoplasm of breast (principal)
CPT/HCPCS: 77063; 77067

== ENCOUNTER 2024-12-27 08:36 | Outpatient (CLI) | payer MEDICARE, SELFPAY ==
--- OUTSIDE RECORDS SUMMARY | 2019-05-10 09:20 | XMS_ITS | Continuity of Care Document ---
Author Organization [facility] Address [address] [place] [address] Phone Care Team Providers Care Lead Manufacturing Technician Name Role Phone Jenifer De Oliveira MD Unavailable Unavailable Allergies, Adverse Reactions, Alerts Substance Reaction Status Criticality No Known Drug Allergies Other Active No I nformation Medications Medication Instructions Dosage Effective Dates (start - stop) Status Comments betamethasone valerate 0.1 % Topical Cream apply by topical route 2 times every day a thin layer to the affected area(s) 0.00 - Active Advance Directives Directive Yes / No Effective Date File Name No Information Encounters Encounter Description Practice Location Reason(s) For Visit Diagnoses Date Provider Providers Copied on Encounter [facility], [address], [place], [place], [address] , tel: [phone] [facility] No Information 0 Yennifer Burgess. [address], [place], [place], [address], . tel:[phone] [facility], [address], [place], [place], [address] , tel: [phone] [facility] No Information 3 Yennifer Burgess. [address], [place], [place], [address], . tel:[phone] [facility], [address] [place] [address], [id number] , tel: [phone] [facility] No Information 2 Yennifer Burgess. [address], [place], [place], [address], . tel:[phone] [facility], [address], [place], [place], [address] , tel: [phone] [facility] Routine general medical examination at a health care facilityAcute maxillary sinusitisRash and other nonspecific skin eruptionRoutine general medical examination at a health care facility 3 1 Yennifer Burgess. [address], [place], [place], [address], [place]. tel:[phone] Referring Provider: Jenifer Ahn, [address], [place], [address] . tel:[phone] [facility], [address], [place], [place], [address] , tel: [phone] [facility] Screening for unspecified disorder of blood and blood-forming organsScreening for thyroid disorders 1 Yennifer Burgess. [address], [place], [address], [place]. tel:[phone] Referring Provider: Jenifer Ahn, [address], [place], [address] . tel:[phone] [facility], [address], [place], [place], [address] , tel: [phone] [facility] Contact dermatitis and other eczema, unspecified causeOtalgia, unspecifiedAllergi c rhinitis, cause unspecifiedImpacte d cerumen 1 Ariane Domínguez. [address], [place], [address]. tel:[phone] Referring Provider: Jenifer Ahn, [address], [place], [address] . tel:[phone] [facility], [address], [place], [place], [address] , tel: [phone] [facility] ACUTE BRONCHITIS 0 8 0 Yennifer Burgess. [address] [place], [place], [address], [place]. tel:[phone] [facility], [address], [place], [place], [address] , tel: [facility] No Information 9 No Information [facility], [address], [place], [place], [address] , tel:[phone] [facility] REFLUX ESOPHAGITIS 9 Cizek Jenifer. [address], [place], [place], [address], [place]. tel:[phone] [place] [address], [address], [place], [place], [address] , tel: [facility] OPEN WOUND OF FOREARMANIMAL BITE NEC 7 Cizek Jenifer. [address], [place], [place], [address], . tel:[phone] [place] [address] [address], [place], [place], [address] , tel: [phone] [facility] ROUTINE MEDICAL EXAMPURE HYPERCHOLESTEROLEM SCREEN-BLOOD DIS NOS 7 Cizek Jenifer. [address], [place], [place], [address], [place]. tel:[phone] [place] [address], [address], [place], [place], [address] , tel: [phone] [facility] ACUTE SINUSITIS NOS 7 Conversion Doctor. [address], [place], [address], [place]. [facility], [address], [place], [place], [address] , tel: [phone] [facility] SPONTANEOUS ECCHYMOSESALLERGIC RHINITIS NOS 4 Cizek Jenifer. [address], [place], [place], [address], [place]. tel:[phone] [facility], [address], [place], [place], [address] , tel: [phone] [facility] SCREEN MAL NEOP-RECTUM 200 4 Cizek Jenifer. [address], [place], [place], [address], [place]. tel:[phone] [facility], [address], [place], [place], [address] , [place] tel: [phone] [facility] MALAISE AND FATIGUE NEC 8-200 4 Cizek Jenifer. [address], [place], [place], [address], [place]. tel:[phone] [facility], [address], [place], [place], [address] , [place] tel: [phone] [facility] IMPACTED CERUMEN 3-200 4 Conversion Doctor. [facility] [place], [address], [place]. [facility], [address], [place], [place], [address] , [place] tel: [phone] [facility] MENOPAUSAL DISORDER NOS 6-200 2 Cizek Jenifer. [address], [place], [place], [address], [place]. tel:[phone] [facility], [address], [place], [place], [address] , [place] tel:[phone] [facility] VACCIN FOR INFLUENZA Nov-0 7-200 2 Cizek Jenifer. [address], [place], [place], [address], [place]. tel:[phone] [facility], [address], [place], [place], [address] , [place] tel: [phone] [facility] CERVICALGIAACUTE URI NOSTENSION HEADACHEAC SUPP OTITIS MEDIA NOS Nov-0 4-200 2 Conversion Doctor. [facility] [place], [address], [place]. [facility], [address], [place], [place], [address] , [place] tel: [phone] [facility] DERMATOPHYTOSIS OF NAIL Mar-0 4-200 2 Cizek Jenifer. [address], [place], [place], [address], [place]. tel:[phone] [facility], [address], [place], [place], [address] , [place] tel: [phone] [facility] GSTR/DDNTS NOS W/O HMRHGBACKACHE NOS 200 2 Manjeet Garcia. [address], [place], [place], [address]. tel:[phone] [facility], [address], [place], [place], [address] , tel: [phone] [facility] CHRONIC RHINITISOTHER SBORHEIC KERATOSIS 3200 0 Umuevgeny RothJenifer. [address], [place], [place], [address], [place]. tel:[phone] Family History Family Member Type Diagnosis Age At Onset No Information Immunizations Vaccine Date Status Comments 70601 - Influenza administered Source: So urce Unspecified Payers Payer name Insurance type Covered constitution party ID Authoriza tion(s) No Information Social History Type Description Quantity Date Captured Comments Alcohol Use Details Unknown Caffeine Use Details Unknown Tobacco Use Status No Information Smoking Status No Information Sex Female Chief Complaint And Reason For Visit No Information Reason For Referral Reason For Referral No Information History Of Present Illness Encounter Date Complaint History Of Prese nt Illness No Information Functional Status Date Functional Assessmen t No Information Instructions Date Instruction Additional Infor mation No Information Assessments Type Assessment Date No Information Patient Care Teams Name Effective Dates (start - stop) Status Members No Information
--- OUTSIDE RECORDS SUMMARY | 2024-12-27 08:47 | XMS_ITS | Encounter Summary ---
Author Organization [facility] Address [address] [place] [address] Care Team Providers Care Television Cable Installer Name Role Phone Markie Atwood MD Primary Care Provider [phone] Encounter Details Date Type Department Care Team (Late Contact Info) Description 10/26/2019 Chart Note [facility] Radiation Therapy [address] [place] [address] [place] [address] [place] [address] Social History Tobacco Use Types [...] Description 01/12/2025 10:15 AM CDT Office Visit [facility] Oncology and Hematology - [place] [address] [facility] [address] [address] [place] [address] Yonatan Gomez MD [address] [facility] [address] [place] [address] documented as of this encounter Visit Diagnoses Not on filedocumented in this encounter Care Teams Television Cable Installer Relationship Specialty Start Date End Date Markie Atwood MD PCP - General Family Practice 07/26/19 documented as of this encounter
--- OUTSIDE RECORDS SUMMARY | 2024-12-27 08:47 | XMS_ITS | Clinical Summary ---
Author Organization [facility] Address [address] [address] Care Team Providers Care Weed Cooking Operator Name Role Phone Markie Atwood MD Primary Care Provider [phone] Allergies No known active allergies Medications IRON [...] Atwood MD [address] [place] [address] Other: Dr. Alysa Lau MD Problem Noted Date Diagnosed Date S/P right mastectomy 06/08/2020 Chemotherapy induced neutropenia 07/11/2019 Malignant neoplasm of overla pping sites of right breast in female, estrogen receptor positive 05/13/2019 Resolved Problems Problem Noted Date Diagnosed Date Resolved Date Seroma of breast 01/27/2020 06/08/2020 Encounters Date Type Department Care Team Description 12/16/2024 Orders Only [facility] Oncology and Hematology - [place] [address] [place] [address] Yonatan Gomez MD 12/12/2024 Refill [facility] Oncology and Hematology - [place] [address] [place] [address] Yonatan Gomez MD Malignant neoplasm of overlapping [...] Description 01/12/2025 10:15 AM CDT Office Visit [facility] Oncology and Hematology - [place] [address] [place] [address] Yonatan Gomez MD [address] [facility] [address] [place] [address] Health Maintenance Due Date Last Done Comments DTAP/TDAP/TD VACCINES (1 - Tdap) 10/17/1971 ZOSTER VACCINE (1 of 2) 10/17/1971 FIT-DNA Q 3 years 1997 FIT/FOBT Q 1 year 1997 Flex Sig/CT Colonography Q 5 years 1997 PNEUMOCOCCAL VACCINE 50+ YEA RS (2 of 2 - PPSV23, PCV20, or PCV21) 04/08/2019 02/11/2019 [place] Preventative Visit/Annual Wellness Visit 03/23/2024 INFLUENZA VACCINE (#1) 2024 , 12/02/2022, 02/11/2019, Additional history exists BREAST CANCER SCREENING 12/14/2025 12/15/19, 08/13/2023, 07/07/2022, Additional history exists RSV VACCINE (60+ or ) (1 - 1-dose 75+ series) 10/17/2027 OSTEOPOROSIS SCREENING 12/25/2027 12/24/2022 COLORECTAL SCREENING 01/01/2031 01/01/2021, 01/02/20 Colorectal Cancer Screening 01/01/2031 Medical Devices Implanted Type Area Lithographic Stripper Device Identifier Shelf Expiration Date Model / Serial / Lot Platform Power Technician Clip Surgiclip Ii Kamran 9.75in [id number] - [id number] Implanted:Qty: 1 on 10[facility]12/[facility]: Axilla [employer] - COVIDIEN 05/20/2024 [id number] / / [id number] Hemostatic Surgicel 4x8in 1949 - [id number] Implanted:Qty: 2 on 10/12/2019 by Alysa Lau MD at [facility] [place] Hemostatic Right: Axilla [employer] 11/21/20231951 / / [id number] Procedures Procedure Name Priority Date/Time Associated Diagnosis Comments MAMMO SCREENING UNILATERAL LEFT Routine 12/14/2024 12:25 PM CDT from Last 3 Months Results * MAMMO SCREENING UNILATERAL LEFT (12/14/2024 12:25 PM CDT) Anatomical Region Laterality Modality Breast Left Mammography Yonatan Gomez MD MAMMO ORDERABLES Final Result from Last 3 Months Insurance [facility] [id number] RX OPTUM RX Member Subscriber Plan / Payer (Ef fective 2019-Present) Name:Cira Massey Relation to Subscriber:Self Name:Cira Massey Payer ID:Not on file Group ID:[id number] Type:RX Medicare Part D Address: [address] [facility] [id number] Advance Directives For more information, please contact: [phone] * Full Code (Latest Code Status on File) Date Activated Date Inactivated Comments 10/12/2019 2:13 PM 10/13/2019 3:02 PM Care Teams Weed Cooking Operator Relationship Specialty Start Date End Date Markie Atwood MD PCP - General Family Practice 07/26/19
--- OUTSIDE RECORDS SUMMARY | 2024-12-27 08:47 | XMS_ITS | Clinical Summary ---
Author Organization [facility] Address [address] [place] [address] Care Team Providers Care Supervisor Yard Name Role Phone Markie Atwood MD Primary Care Provider [phone] Allergies No known active allergies Medications aspirin 81 mg enteric coated tablet Take 1 tablet (81 mg total) by mouth daily Active naproxen (ALEVE) 220 mg tablet Take by mouth 2 (two) times a day with meals Active anastrozole (ARIMIDEX) 1 mg tablet 1 Active [...] MOUTH DAILY 90 tablet 1 5 Active ALPRAZolam (XANAX) 0.5 mg tabletIndicatio ns:Anxiety Take 1 tablet (0.5 mg total) by mouth 3 (three) times a day as needed for anxiety 30 tablet 0 12/21/19 25 Discontinu ed(Patient Reported) Active Problems Problem Noted Date Diagnosed Date Malignant neoplasm of overla pping sites of right breast in female, estrogen receptor positive 12/15/2023 Assessment & Plan (12/20/2024 9:46 AM CDT): Stable and controlled. Continues to follow with specialist and get routine mammograms. Encounter for screening colonoscopy 11/30/2020 Overview (11/30/2020): Added automatically from request for surgery [id number] Encounters Date Type Department Care Team Description 12/21/2024 8:10 AM CDT Lab [facility] [address] [place] [id number] Medicare annual wellness visit, subsequent; Mixed hyperlipidemia; Thyroid disorder screening; Diabetes mellitus screening; Vitamin D deficiency 12/20/2024 9:30 AM CDT Office Visit [facility] [address] [place] [address] Kathrin Aden NP Medicare annual wellness visit, subsequent (Primary Dx); Malignant neoplasm of overlapping sites of right breast in female, estrogen receptor positive (HCC); Mixed hyperlipidemia; Vitamin D deficiency; Thyroid disorder screening; Need for influenza vaccination; Diabetes mellitus screening; BMI 29.0-29.9,adult 11/16/2024 Telephone [facility] Care Organization [address] [place] [id number] Lisa Samuel MA Chart Review (Med adherence ) from Last 3 Months Immunizations Immunization Administration Dates Next Due Influenza, Quadrivalent, Hig h Dose, Preservative Free, Intrr 12/02/2022 Influenza, Quadrivalent, Spl it, Intramuscular 01/21/2015 Influenza, Quadrivalent, Spl it, Preservative Free, Intramuscular 12/30/2016 Influenza, Trivalent, High D ose, Split, Preservative Free, Intramuscular 12/20/2024,12/15/2023,02/11/2019,01/07 Influenza, Unspecified 12/20/2024(Deferr ed: Patient Refused),12/21/2023(Deferred: Patient Refused),12/15/2023(Deferred: Patient Refused),12/02/2022(Deferred: Patient Refused),03/23/2022(Deferred: Patient Refused),03/23/2021(Deferred: Patient [...] points, staff should administer the PHQ-9) 0 12/20/2024 Comments Unknown Sex and Gender Information Value Date Recorded Sex Assigned at Not on file Legal Sex Female 3:18 AM [employer] Gender Identity Female 12/20/2020 2:50 PM CDT Sexual Orientation Not on file Obstetrics History Last Filed Vital Signs Vital Sign Reading Time Taken Comments Blood Pressure 114/86 12/20/2024 9:11 AM CDT Pulse 111 12/20/2024 9:11 AM CDT Temperature 36.8 C (98.2 F) 12/15/2023 7:55 AM CDT Respiratory Rate 18 12/20/2024 9:11 AM CDT Oxygen Saturation 97% 12/20/2024 9:11 AM CDT Inhaled Oxygen Concentration - - Weight 86.1 kg (189 lb 12.8 oz) 12/20/2024 9:11 AM CDT Height 170.2 cm (5' 7.01) 12/20/2024 9:11 AM CD T Body Mass Index 29.72 12/20/2024 9:11 AM CDT Plan of Treatment Health Maintenance Due Date Last Done Comments Hepatitis C Screening 1950 DTaP/Tdap/Td Vaccine (1 - Tdap) 10/17/1963 Hepatitis B Screening 1970 Zoster Vaccine (1 of 2) 10/17/1971 Pneumococcal vaccine 65+ (2 of 2 - PPSV23, PCV20, or PCV21) 04/08/2019 02/11/2019 Covid-19 Vaccine (3 - Pfizer risk series) 09/11/2020 08/14/2020, 07/24/2020 Osteoporosis Screening-Bone Density Scan 12/24/2024 12/24/2022, 11/22/2020 Breast Cancer Screening-Mammogram 12/16/2025 12/16/2024, 08/13/2023, 08/13/2023, Additional history exists Depression Screening 12/20/2025 12/20/2024, 12/15/2023, 12/02/2022, Additional history exists Fall Risk Assessment 12/20/2025 12/20/2024, 12/15/2023, 12/02/2022, Additional history exists Well Visit 65+ 12/20/2025 12/20/2024, 11/22, 12/02/2022, Additional history exists Colon Cancer Screening-Colonoscopy 01/01/2031 01/01/2021, 06/19/2006, 06/19/2006, Additional history exists Colon Cancer Screening-CT Colonography Discontinued 01/01/2021, 06/19/2006, 06/19/2006, Additional history exists Colon Cancer Screening-DNA Stool Discontinued 01/01/2021, 06/19/2006, 06/19/2006, Additional history exists Colon Cancer Screening-FIT Discontinued 01/01, 06/19/2006, 06/19/2006, Additional history exists Colon Cancer Screening-Sigmoidoscopy Discontinued 01/01/2021, 06/19/2006, 06/19/2006, Additional history exists Influenza Vaccine Completed 12/20/2024, , 12/02/2022, Additional history exists Procedures Procedure Name Priority Date/Time Associated Diagnosis Comments EGFR Routine 12/21/2024 8:12 AM CDT Medicare annual wellness visit, subsequent DIFFERENTIAL AUTO Routine 12/21/2024 8:1 2 AM CDT Medicare annual wellness visit, subsequent VITAMIN D 25 HYDROXY Routine 12/21/2024 8:12 AM CDT Vitamin D deficiency HEMOGLOBIN A1C Routine 12/21/2024 8:12 AM CDT Diabetes mellitus screening T4, FREE Routine 12/21/2024 8:12 AM CDT Medicare annual wellness visit, subsequent Thyroid disorder screening TSH Routine 12/21/2024 8:12 AM CDT Medicare annual wellness visit, subsequent Thyroid disorder screening LIPID PANEL Routine 12/21/2024 8:12 AM CDT Medicare annual wellness visit, subsequent Mixed hyperlipidemia COMPREHENSIVE METABOLIC PANEL Routine 12/21/2024 8:12 AM CDT Medicare annual wellness visit, subsequent CBC WITH AUTO DIFFERENTIAL Routine 12/21/2024 8:12 AM CDT Medicare annual wellness visit, subsequent SCREENING MAMMOGRAM Schedule Routine, Read Routine (OP Routine) 08/13/2023 DEXA AXIAL SKELETON BONE DENSITY 1 OR MORE SITES Schedule Routine, Read Routine (OP Routine) 12/24/2022 COLONOSCOPY 01/01/2021 8:27 AM CDT from Last 3 Months or Most Recently Relevant to Health Maintenance Results * eGFR (12/21/2024 8:12 AM CDT) eGFR 86 >=60 mL/min/1. 73 m2 Comment: Interpretive Data Reference Interval Normal >/= 90 mL/min/1.73m2 Mildly decreased* 60 - 89 mL/min/1.73m2 Mildly to moderately decreased 45 - 59 mL/min/1.73m2 Moderately to severely decreased 30 - 44 mL/min/1.73m2 Severely decreased 15 - 29 mL/min/1.73m2 Kidney Failure < 15 mL/min/1.73m2 *Relative to young adult level Estimated glomerular filtration rate is determined by the 2020 CKD-EPI equation recommended by the National Kidney Foundation (A Unifying Approach to GFR Estimation: Recommendations of the NKF-ASK Task Force on Reassessing the Inclusion of Race in Diagnosing Kidney Disease, JASN 2020). The CKD-EPI equation should not be used for patients with unstable renal function and has not been validated in children and those over 70. Current interpretive data was last reviewed 2021. Testing performed by: [facility], [address] [place] [address]., [id number] Blood 12/21/2024 8:12 AM CDT 12/21/2024 3:25 PM CDT Kathrin Aden STOCKING AND BOX SHOP SUPERVISOR LAB BLOOD ORDERABLES Final Re sult [facility] (BIG SANDY) 1 [facility] Department [place] [address] * Differential, auto (12/21/2024 8:12 AM CDT) Neutrophil abs 3.68 1.50 - 6.50 K/cumm Comment:Testing performed by : [facility], [address] [place] [address]., [id number] Imm gran abs 0.02 0.00 - 0.10 K/cumm [facility] (LUIS ANTONIO) Comment:Testing performed by : [facility], [address] [place] [address]., [id number] Lymphocyte abs 1.07 0.80 - 3.30 K/cumm [facility] (LUIS ANTONIO) Comment:Testing performed by : [address] [address] Monocyte abs 0.57 0.20 - 0.80 K/cumm [facility] (LUIS ANTONIO) Comment:Testing performed by : [address] [address] Eosinophil abs 0.28 0.00 - 0.50 K/cumm [facility] (LUIS ANTONIO) Comment:Testing performed by : [address], [address] Basophil abs 0.07 0.00 - 0.10 K/cumm [facility] (LUIS ANTONIO) Comment:Testing performed by : [address], [address] Neutrophil pct 64.7 % [facility] (LUIS ANTONIO) Comment: Interpretive Data Percent cell count reference ranges are not reported, since discordance with absolute values may lead to misinterpretation of CBC data. Current Interpretive Data was last revised on 2017. Testing performed by: [facility], [address] [place] [address]., [address] Imm gran pct 0.4 % [facility] (LUIS ANTONIO) Comment: Interpretive Data Percent cell count reference ranges are not reported, since discordance with absolute values may lead to misinterpretation of CBC data. Current Interpretive Data was last revised on 2017. Testing performed by: [facility], [address] [place] [address]., [address] Lymphocyte pct 18.8 % [facility] (LUIS ANTONIO) Comment: Interpretive Data Percent cell count reference ranges are not reported, since discordance with absolute values may lead to misinterpretation of CBC data. Current Interpretive Data was last revised on 2017. Testing performed by: [facility], [address] [place] [address]., [address] Monocyte pct 10.0 % [facility] (LUIS ANTONIO) Comment: Interpretive Data Percent cell count reference ranges are not reported, since discordance with absolute values may lead to misinterpretation of CBC data. Current Interpretive Data was last revised on 2017. Testing performed by: [facility], [address] [place] [address]., [address] Eosinophil pct 4.9 % [facility] (LUIS ANTONIO) Comment: Interpretive Data Percent cell count reference ranges are not reported, since discordance with absolute values may lead to misinterpretation of CBC data. Current Interpretive Data was last revised on 2017. Testing performed by: [facility], [address] [place] [address]., [address] Basophil pct 1.2 % [facility] (LUIS ANTONIO) Comment: Interpretive Data Percent cell count reference ranges are not reported, since discordance with absolute values may lead to misinterpretation of CBC data. Current Interpretive Data was last revised on 2017. Testing performed by: [address] [id number] Blood 12/21/2024 8:12 AM CDT 12/21/2024 2:35 PM CDT us Kathrin Aden ST[employer] SUPERVISOR LAB BLOOD ORDERABLES Final Re sult DANICA MAN (LUIS ANTONIO) 1 [facility] Department [place] [address] * (ABNORMAL) CBC with auto differential (12/21/2024 8:12 AM CDT) WBC 5.69 3.80 - 9.90 K/cumm Comment:Testing performed by : [address], [address] Hgb 14.1 11.9 - 15.5 g/dL [facility] (LUIS ANTONIO) Comment:Testing performed by : [facility], [address] [place] [address], [address] Hct 43.3 35.6 - 45.5 % [facility] (LUIS ANTONIO) Comment:Testing performed by : [address], [address] Plt 291 150 - 400 K/cumm [facility] (LUIS ANTONIO) Comment:Testing performed by : [address], [address] MPV 8.9(L) 9.1 - 12.3 fL [facility] (LUIS ANTONIO) Comment:Testing performed by : [address], [address] RBC 4.54 3.90 - 5.20 M/cumm [facility] (LUIS ANTONIO) Comment:Testing performed by : [address], [address] MCV 95.4 81.3 - 96.4 fL [facility] (LUIS ANTONIO) Comment:Testing performed by : [address], [address] MCH 31.1 27.1 - 33.3 pg [facility] (LUIS ANTONIO) Comment:Testing performed by : [address], [address] MCHC 32.6 32.3 - 35.7 g/dL [facility] (LUIS ANTONIO) Comment:Testing performed by : [address], [address] RDW CV 12.9 11.1 - 14.9 % [facility] (LUIS ANTONIO) Comment:Testing performed by : [address], [address] RDW SD 45.4 35.7 - 48.1 fL DANICA MAN (LUIS ANTONIO) Comment:Testing performed by : [facility], [address] [place] [address], [address] NRBC abs 0.00 0.00 - 0.01 K/cumm DANICA MAN (LUIS ANTONIO) Comment:Testing performed by : [facility], [address] [place] [address], [address] Blood 12/21/2024 8:12 AM CDT 12/21/2024 2:35 PM CDT Kathrin Aden ST[employer] SUPERVISOR LAB BLOOD ORDERABLES Final Re sult Performing Organization Address [facility]/ZIP Co de Phone Number DANICA MAGDA (BIG SANDY) [address] [facility] [employer] [place] [address] * Vitamin D 25 hydroxy (12/21/2024 8:12 AM CDT) Vitamin D 25-OH 71 30 - 80 ng/mL Comment:Testing performed by : [facility], [address] [place] [address], [id number] Blood 12/21/2024 8:12 AM CDT 12/21/2024 2:35 PM CDT Kathrin Aden NP LAB BLOOD ORDERABLES Final Re sult Performing Organization Address [facility] Co de Phone Number DANICA [facility] (BIG SANDY) 1 [place] [address] * TSH (12/21/2024 8:12 AM CDT) Thyroid Stimulating Hormone 1.01 0.30 - 4.20 mcIUnit/mL Comment:Testing performed by : [facility], [address] [place] [address], [id number] Blood 12/21/2024 8:12 AM CDT 12/21/2024 2:35 PM CDT Kathrin Aden NP LAB BLOOD ORDERABLES Final Re sult Performing Organization Address [facility]/ZIP Co de Phone Number DANICA MAN (LUIS ANTONIO) 1 [place] [address] * T4, free (12/21/2024 8:12 AM CDT) Pathologist [facility] Free T4 1.08 0.90 - 1.70 ng/dL Comment:Testing performed by : [facility], [address] [place] [address], [id number] Blood 12/21/2024 8:12 AM CDT 12/21/2024 2:35 PM CDT Kathrin Aden NP LAB BLOOD ORDERABLES Final Re sult Performing Organization Address [facility] de Phone Number DANICA MAN (BIG SANDY) 1 [place] [address] * (ABNORMAL) Hemoglobin A1c (12/21/2024 8:12 AM CDT) [facility] Hgb A1C 5.8(H) 4.0 - 5.6 % Comment:Testing performed by : [facility], [address] [place] [address]., [id number] Estimated Average Glucose 120 mg/dL DANICA MAN (LUIS ANTONIO) Comment: The ADA recommends reporting an estimated Average Glucose (eAG) with all Hemoglobin A1c results using the equation derived from a study of 507 normal and diabetic adults. Minority populations were underrepresented and children were not included. (Diabetes Care 31:0982-6727, 2008). The eAG is not equivalent to a fasting glucose. Testing performed by: [facility], [address] [place] [address]., [address] Blood 12/21/2024 8:12 AM CDT 12/21/2024 2:35 PM CDT us Kathrin Aden NP LAB BLOOD ORDERABLES Final Re sult Performing Organization Address City/[facility]/ZIP Co de Phone Number DANICA MAN (BIG SANDY) 1 [place] [address] * (ABNORMAL) Lipid panel (12/21/2024 8:12 AM CDT) Cholesterol 174 30 - 199 mg/dL Comment: Interpretive Data Ages < or = 19 years Acceptable: <170 mg/dL Borderline high: 170-199 mg/dL High: >or= 200 mg/dL Ages > or = 20 years Desirable: <200 mg/dL Borderline high: 200-239 mg/dL High: >or= 240 mg/dL Literature References: 1. Expert Panel on Integrated Guidelines for Cardiovascular Health and Risk Reduction in Children and Adolescents. Pediatrics 2011;128:S213 2. NCEP Expert Panel. Circulation 2004;110:227 Current Interpretive Data was last revised on 2017. Testing performed by: [facility], [address] [place] [address]., [address] Triglycerides 193(H) <=149 mg/dL DANICA MAN (ULIS ANTONIO) Comment: Interpretive Data Ages < or = 9 years Acceptable: <75 mg/dL Borderline high: 75-99 mg/dL High: >or= 100 mg/dL Ages 10 to 20 years Acceptable: <90 mg/dL Borderline high: 90-129 mg/dL High: >or= 130 mg/dL Ages > or = 20 years Desirable: <150 mg/dL Borderline high: 150-199 mg/dL High: 200-499 mg/dL Very high: >or= 499 mg/dL Literature References: 1. Expert Panel on Integrated Guidelines for Cardiovascular Health and Risk Reduction in Children and Adolescents. Pediatrics 2011;128:S213 2. NCEP Expert Panel. Circulation 2004;110:227 Current Interpretive Data was last revised on 2017. Testing performed by: [facility], [address] [place] [address]., [address] HDL 56 >=40 mg/dL [facility] (LUIS ANTONIO) Comment: Interpretive Data Ages < or = 19 years Acceptable: >45 mg/dL Borderline low: 40-45 mg/dL Low: <40 mg/dL Ages > or = 20 years Desirable: >or= 60 mg/dL Low: <40 mg/dL Literature References: 1. Expert Panel on Integrated Guidelines for Cardiovascular Health and Risk Reduction in Children and Adolescents. Pediatrics 2011;128:S213 2. NCEP Expert Panel. Circulation 2004;110:227 Current Interpretive Data was last revised on 2017. Testing performed by: [facility], [address] [place] [address]., [address] LDL, calculated 86 <=129 mg/dL DANICA MAN (LUIS ANTONIO) Comment: Interpretive Data Ages < or = 19 years Acceptable: <110 mg/dL Borderline high: 110-129 mg/dL High: >or= 130 mg/dL Ages > or = 20 years Optimal: <100 mg/dL Near optimal: 100-129 mg/dL Borderline high: 130-159 mg/dL High: >160 mg/dL Calculated using the Franky LDL-C estimating equation. This equation was implemented on 2023. Prior to this date LDL-C was estimated using the Friedewald equation. Literature References: 1. Expert Panel on Integrated Guidelines for Cardiovascular Health and Risk Reduction in Children and Adolescents. Pediatrics 2011;128:S213 2. NCEP Expert Panel. Circulation 2004;110:227 3. Franky Ahn et al. LUCIEN Cardiol. 2019July 21;5(5):540-548. doi: 10.1001/jamacardio.2020.0013 Current Interpretive Data was last revised on 2023. Testing performed by: [address] [address] Non-HDL Cholesterol 118 mg/dL DANICA MAN (LUIS ANTONIO) Comment: Interpretive Data Ages < or = 19 years Acceptable: <120 mg/dL Borderline high: 120-144 mg/dL High: >145 mg/dL Ages > or = 20 years When triglycerides are >200 mg/dL, Non-HDL cholesterol is a secondary target of therapy with treatment goals that are 30 mg/dL greater than the LDL cholesterol target. Literature References: 1. Expert Panel on Integrated Guidelines for Cardiovascular Health and Risk Reduction in Children and Adolescents. Pediatrics 2011;128:S213 2. NCEP Expert Panel. Circulation 2004;110:227 Current Interpretive Data was last revised on 2017. Testing performed by: [address] [address] Chol/HDL ratio 3 FRANCISCO JAVIER MAN (LUIS ANTONIO) Comment:Testing performed by : [facility], [address] [place] [address]., [address] Blood 12/21/2024 8:12 AM CDT 12/21/2024 2:35 PM CDT us Kathrin Aden NP LAB BLOOD ORDERABLES Final Re sult DANICA MAGDA (LUIS ANTONIO) 1 [facility] Department [place] [address] * Comprehensive metabolic panel (12/21/2024 8:12 AM CDT) Sodium 136 135 - 145 mmol/L Comment:Testing performed by : [facility], [address] [place] [address]., [address] Potassium, pl 4.2 3.3 - 4.9 mmol/L [facility] (LUIS ANTONIO) Comment:Testing performed by : [facility], [address] [place] [address]., [address] Chloride 100 97 - 110 mmol/L [facility] (LUIS ANTONIO) Comment:Testing performed by : [address], [address] CO2 24 22 - 32 mmol/L [facility] (LUIS ANTONIO) Comment:Testing performed by : [address] [address] Anion gap 12 2 - 15 mmol/L [facility] (LUIS ANTONIO) Comment:Testing performed by : [address] [address] BUN 12 6 - 25 mg/dL [facility] (LUIS ANTONIO) Comment:Testing performed by : [address], [address] Creatinine 0.74 0.60 - 1.10 mg/dL [facility] (LUIS ANTONIO) Comment:Testing performed by : [address], [address] Glucose 122 70 - 199 mg/dL [facility] (LUIS ANTONIO) Comment: Interpretive Data Fasting glucose >/= 126 mg/dl is diagnostic for diabetes. Fasting is defined as no caloric intake for at least 8 hours. Fasting glucose between 100 mg/dl to 125 mg/dl is diagnostic of prediabetes. In a patient with classic symptoms of hyperglycemia or hyperglycemic crisis, a random glucose >/= 200 mg/dl is diagnostic for diabetes. In the absence of unequivocal hyperglycemia, results should be confirmed by repeat testing. The classification and Diagnosis of Diabetes Diabetes Care 202; 46: S19-S40. Current interpretive data was last revised 2022. Testing performed by: [facility], [address] [place] [address]., [address] Calcium 9.6 8.5 - 10.3 mg/dL [facility] (LUIS ANTONIO) Comment:Testing performed by : [facility], [address] [place] [address], [address] Bilirubin, total 0.5 0.1 - 1.2 mg/dL [facility] (LUIS ANTONIO) Comment:Testing performed by : [facility], [address] [place] [address], [address] Protein, pl 7.5 6.5 - 8.5 g/dL [facility] (LUIS ANTONIO) Comment:Testing performed by : [facility], [address] [place] [address], [address] Albumin 4.3 3.5 - 5.0 g/dL [facility] (LUIS ANTONIO) Comment:Testing performed by : [facility], [address] [place] [address], [address] Alk phos 122 40 - 130 Units/L [facility] (LUIS ANTONIO) Comment:Testing performed by : [facility], [address] [place] [address], [address] ALT 32 7 - 45 Units/L [facility] (LUIS ANTONIO) Comment:Testing performed by : [facility], [address] [place] [address], [address] AST 35 10 - 45 Units/L [facility] (LUIS ANTONIO) Comment:Testing performed by : [address], [address] Blood 12/21/2024 8:12 AM CDT 12/21/2024 2:35 PM CDT Kathrin Aden NP LAB BLOOD ORDERABLES Final Re sult [facility] (LUIS ANTONIO) 1 [facility] Department [place] [address] * Screening Mammogram (08/13/2023) Anatomical Region Laterality [...] Arshad MD - 01/01/2021 8:27 AM CDT [facility] Patient Name: Cira Massey Procedure Date: 01/01/2021 [...] scope was passed under direct vision. TheColonoscope [id number] was introduced through the anus and advanced [...] malignant neoplasm of colon CPT copyright 2019 [employer]. All rights reserved. The codes documented in this report are preliminary and upon fancy sewer reviewmay be revised to meet current compliance requirements. Recognized by the [employer] for promoting quality in endoscopy Joey Arshad MD ENDOSCOPY PROCEDURES Final Re sult from Last 3 Months or Most Recently Relevant to Health Maintenance Insurance [employer] MEDICARE ADVANTAGE [facility] Address: [address] [address] [place] [address] [employer] MED[employer]ARE [employer]VANTAGE [facility] Address: [address] [address] [place] [address] Advance Directives For more information, please contact: [phone] * Full Code (Latest Code Status on File) Date Activated Date Inactivated Comments 01/01/2021 8:25 AM 01/01/2021 2:48 PM * Full Code Date Activated Date Inactivated Comments 01/01/2021 8:25 AM 01/01/2021 8:25 AM Care Teams Supervisor Yard Relationship Specialty Start Date End Date [place] [address] PCP - General Family Medicine 05/18/19
[2024-12-27 08:50] LABS: Hematocrit 41.9 % (37.0-47.0); Hemoglobin 14.1 g/dL (12.0-15.0); Immature Granulocyte Percent A 0.3 % (0-0.5); Lymphocytes Absolute Auto 1.61 K/mm3 (0.9-3.2); Mean Corpuscular HGB Conc 33.7 g/dl (32-36); Mean Corpuscular Hemoglobin 32.0 pg (26-34); Mean Corpuscular Volume 95.2 fl (80-100); Nucleated Red Blood Cells Absolute Auto 0.000 K/mm3 (0.0-0.012); Nucleated Red Blood Cells Perc 0.0 % (0.0-0.2); Platelet Count Result 234 k/mm3 (150-375); Red Blood Count 4.40 M/mm3 (4.2-5.4); White Blood Count 7.1 K/mm3 (4.5-10.0)
[2024-12-27 09:56] LABS: Alanine Aminotransferase 39 U/L (6-35); Albumin Level 4.3 g/dL (3.5-5.1); Alkaline Phosphatase 118 U/L (38-126); Anion Gap 8 mmol/L (4-12); Aspartate Amino Transferase 37 U/L (14-36); Bilirubin,Total 0.5 mg/dL (0.2-1.3); Blood Urea Nitrogen 13 mg/dL (7-17); Calcium 9.6 mg/dL (8.4-10.2); Carbon Dioxide 27 mmol/L (22-30); Chloride 100 mmol/L (98-107); Estimated Glomerular Filt Rate > 60; Glucose 120 mg/dL (65-110); Potassium 4.6 mmol/L (3.4-5.0); Sodium 135 mmol/L (137-145); Total Protein 7.7 g/dL (6.3-8.2)
== END 2024-12-27 08:37 | disposition home or self-care (01) ==
LOC: ANHLAB 08:38
PROVIDERS: PCP Family Medicine; Visit Provider Internal Medicine Hematology & Oncology
DX: C50.811 Malignant neoplasm of overlapping sites of right female breast (principal); Z17.0 Estrogen receptor positive status [ER+]
CPT/HCPCS: 36415; 80053; 85025; 86300